=== PATIENT | female | born 1965 | race Caucasian/White ===

== ENCOUNTER → 2016-10-22 | Outpatient (CLI) | payer OTHER ==
--- NOTE | 2016-10-22 13:57 | US ---
EXAMINATION TYPE: US venous doppler duplex LE LT DATE OF EXAM: 10/22/2016 1:39 PM COMPARISON: NONE CLINICAL HISTORY: lLE R/O DVT, M25.571. post hip replacement SIDE PERFORMED: Left VESSELS IMAGED: External Iliac Vein (EIV) Common Femoral Vein Deep Femoral Vein Greater Saphenous Vein * Femoral Vein Popliteal Vein Proximal Calf Veins (* superficial vessels) TECHNOLOGIST IMPRESSION: wnl Left Leg: Negative for DVT There is no popliteal fossa lesion. Results called to Laura Yeung's office IMPRESSION: THIS EXAMINATION IS NEGATIVE FOR DVT WITHIN THE LEFT LEG.
== END | disposition home or self-care (01) ==
LOC: RADUSWWP 12:28
PROVIDERS: ATTEND Internal Medicine
DX: M79.662 Pain in left lower leg (principal); M79.89 Other specified soft tissue disorders

== ENCOUNTER → 2017-05-15 | Outpatient (CLI) | payer OTHER ==
--- NOTE | 2017-05-15 10:22 | CT ---
EXAMINATION TYPE: CT abdomen pelvis w con DATE OF EXAM: 05/15/2017 COMPARISON: NONE HISTORY: Change in bowel habits CT DLP: 876 mGycm Automated exposure control for dose reduction was used. TECHNIQUE: Helical acquisition of images from the lung bases through the pelvis have been completed. CONTRAST: Performed with Oral Contrast and with IV Contrast, patient injected with 100 mL of Omnipaque 300. FINDINGS: LUNG BASES: No significant abnormality is appreciated. AORTA: No significant abnormality is appreciated. LIVER/GB: Liver is enlarged and shows low attenuation possibly due to hepatic steatosis, gallbladder is normal. PANCREAS: No significant abnormality is seen. SPLEEN: No significant abnormality is seen. ADRENALS: No significant abnormality is seen. KIDNEYS: No significant abnormality is seen. REPRODUCTIVE ORGANS: Left ovary shows an associated cystic focus measuring approximately 17 18 mm, ut erus is absent. BOWEL: Difficult to exclude mucosal lesion on the basis of this exam. No evident bowel obstruction. The appendix is not visualized.. FREE AIR: No Free Air visible. ASCITES: None visible. PELVIC ADENOPATHY: None visualized. RETROPERITONEAL ADENOPATHY: No Retroperitoneal Adenopathy visible. URINARY BLADDER: No significant abnormality is seen. OSSEOUS STRUCTURES: Bilateral hip prostheses are in place. Streak artifact may limit sensitivity wit hin the pelvis. IMPRESSION: POSTOP CHANGES. INDETERMINATE CYSTIC LEFT OVARIAN LESION, CONSIDER FOLLOW-UP. HEPATOMEGALY, CONSIDER HEPATIC STEATOSIS.
== END | disposition home or self-care (01) ==
LOC: RADCTMAIN 06:31
PROVIDERS: ATTEND Internal Medicine
DX: R16.0 Hepatomegaly, not elsewhere classified (principal); R19.4 Change in bowel habit; Z88.2 Allergy status to sulfonamides
CPT/HCPCS: 74177; Q9967

== ENCOUNTER → 2017-06-13 | Outpatient (CLI) | payer OTHER ==
[2017-06-13 09:47] LABS: Basophils % (A) 1 %; CH 33.1; CHCM 33.4; Eosinophils # (A) 0.1 k/uL (0-0.7); Eosinophils % (A) 2 %; HCT 43.2 % (34.0-46.0); HDW 2.36; HGB 13.7 gm/dL (11.4-16.0); Luc # (Auto) 0.09; Luc % (Auto) 2; Lymphocytes # (A) 1.9 k/uL (1.0-4.8); Lymphocytes % (A) 31 %; MCH 31.6 pg (25.0-35.0); MCHC 31.7 g/dL (31.0-37.0); MCV 99.6 fL (80.0-100.0); Macrocytosis Slight; Mean Platelet Volume 7.2; Monocytes # (A) 0.4 k/uL (0-1.0); Monocytes % (A) 7 %; Neutrophils # (A) 3.6 k/uL (1.3-7.7); Neutrophils % (A) 58 %; RBC 4.34 m/uL (3.80-5.40); RDW 15.3 % (11.5-15.5); WBC 6.2 k/uL (3.8-10.6)
[2017-06-13 10:05] LABS: ALT 36 U/L (9-52); AST 27 U/L (14-36); Alkaline Phosphatase 100 U/L (38-126); Anion Gap 9 mmol/L; Blood Urea Nitrogen 8 mg/dL (7-17); Calcium 9.4 mg/dL (8.4-10.2); Carbon Dioxide 28 mmol/L (22-30); Chloride 103 mmol/L (98-107); Glucose 80 mg/dL (74-99); Non-African American GFR(MDRD) >60 (>60 ml/min/1.73 sqM); Potassium 4.2 mmol/L (3.5-5.1); Sodium 140 mmol/L (137-145); Total Bilirubin 0.3 mg/dL (0.2-1.3); Total Protein 7.3 g/dL (6.3-8.2)
[2017-06-13 17:21] LABS: Gliadin AB IgA, Deaminated NEGATIVE (NEGATIVE); Gliadin AB IgG, Deaminated NEGATIVE (NEGATIVE); Gliadin AB IgG, Unit <0.4 U/mL; Tis Transglutaminase IgA Unit <0.5 AI; Tis Transglutaminase IgG Unit <0.8 U/mL
== END | disposition home or self-care (01) ==
LOC: LABWHC1 09:07
PROVIDERS: ATTEND Physician Assistant
DX: R14.0 Abdominal distension (gaseous) (principal); R16.0 Hepatomegaly, not elsewhere classified
CPT/HCPCS: 36415; 80053; 80074; 83516; 84443; 85025

== ENCOUNTER → 2017-10-03 | Outpatient (CLI) | payer OTHER ==
[~2017-10-03] MED LIST: AMINOPHYLLINE 500 MG/20 ML VIAL IV ONE; REGADENOSON 0.4 MG/5 ML SYRINGE IV ONE
--- NOTE | 2017-10-03 15:51 | EST ---
EXERCISE STRESS DATE OF SERVICE: 10/03/2017 AGE: 52 SEX: Female. HT: 69" WT: 176 pounds. PROTOCOL: Lexiscan Cardiolite. STAGE: DURATION OF EXERCISE: HEART RATE REST: 73 BLOOD PRESSURE REST: 112/71 MAXIMUM HEART RATE ACHIEVED: 102 MAXIMUM BLOOD PRESSURE: 121/65 85% MPHR: 143 100% MPHR: 160 METS: INDICATIONS: Chest pain, shortness of breath. CLINICAL INFORMATION: STRESS DATA: Pre-testing physical examination showed heart rate of 73, pressure 112/71 mmHg. Baseline EKG showed sinus mechanism. Lexiscan in the amount of 0.4 mg was given to the patient over 15 seconds per protocol. Maximum heart rate was 102 beats per minute and maximum pressure was 121/65 mmHg. The patient did not have any symptoms and the EKG did not show any significant ST or T-wave abnormalities consistent with ischemia. CONCLUSION: 1. Non-diagnostic electrocardiogram stress testing in response to Lexiscan. 2. Please follow up on the Cardiolite portion on a separate report from the radiology department. MMODL / IJN: [id number] /
--- NOTE | 2017-10-04 14:51 | NM ---
EXAMINATION TYPE: NM stress lexiscan cardiolite DATE OF EXAM: 10/03/2017 COMPARISON: NONE HISTORY: Primary pulmonary hypertension, angina pectoris, I 27.0, I 20.9 TECHNIQUE: After the intravenous administration of 11.1 mCi Tc 99m Sestamibi - Cardiolite resting SP ECT images acquired 40 minutes post injection. The patient received 0.4mg Lexiscan, 26.5 mCi Tc 99m Sestamibi - Stress images obtained [address] injection FINDINGS: Gut activity may obscure detail along the inferior wall the left ventricle. Review of stress and rest SPECT images demonstrates decreased radio pharmaceutical uptake along anter ior wall left ventricle on stress and rest images. Along the lateral wall the left ventricle towards the base of the heart there is decreased radiotracer uptake on stress as compared to rest images. Gat ed analysis shows normal wall motion with an estimated left ventricular ejection fraction of 52 %. Images submitted 10/04/2017 IMPRESSION: Pharmacologically induced left ventricular myocardial wall ischemia. Findings suggest prior infarct. A Yellow message has been communicated to Charlotte Yeung MD via the [employer] system on 10/04/2017 2:48 PM, Message ID [id number].
== END | disposition home or self-care (01) ==
LOC: RADNMMAIN 08:22
PROVIDERS: ATTEND Internal Medicine
DX: I25.9 Chronic ischemic heart disease, unspecified (principal); I10 Essential (primary) hypertension
CPT/HCPCS: 93017; 78452; A9500; J2785

== ENCOUNTER 2017-10-17 18:19 | Inpatient (IN) | payer OTHER ==
[2017-10-17] MEDS ORDERED: MORPHINE SULFATE 4 MG/ML SYRINGE IVP STA (19:00)
[2017-10-17] MEDS ORDERED: ASPIRIN 81 MG PO STA (19:00)
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
[2017-10-17 19:16] LABS: Basophils % (A) 0 %; Eosinophils # (A) 0.1 k/uL (0-0.7); Eosinophils % (A) 1 %; HCT 40.9 % (34.0-46.0); Lymphocytes # (A) 3.1 k/uL (1.0-4.8); Lymphocytes % (A) 28 %; MCH 33.3 pg (25.0-35.0); MCHC 34.2 g/dL (31.0-37.0); MCV 97.5 fL (80.0-100.0); Mean Platelet Volume 6.7; Monocytes # (A) 0.7 k/uL (0-1.0); Monocytes % (A) 7 %; Neutrophils % (A) 63 %; Platelet Count 248 k/uL (150-450); RBC 4.19 m/uL (3.80-5.40); RDW 12.9 % (11.5-15.5); WBC 11.1 k/uL (3.8-10.6)
[2017-10-17 19:23] LABS: ALT 30 U/L (9-52); AST 16 U/L (14-36); Albumin 4.3 g/dL (3.5-5.0); Alkaline Phosphatase 83 U/L (38-126); Anion Gap 11 mmol/L; Blood Urea Nitrogen 7 mg/dL (7-17); Calcium 9.7 mg/dL (8.4-10.2); Carbon Dioxide 28 mmol/L (22-30); Chloride 100 mmol/L (98-107); Glucose 92 mg/dL (74-99); Lipase 265 U/L (23-300); Magnesium 1.8 mg/dL (1.6-2.3); Potassium 3.5 mmol/L (3.5-5.1); Sodium 139 mmol/L (137-145); Total Bilirubin 0.2 mg/dL (0.2-1.3); Total Protein 7.4 g/dL (6.3-8.2)
--- NOTE | 2017-10-17 19:32 | XR ---
EXAMINATION TYPE: XR chest 2V DATE OF EXAM: 10/17/2017 COMPARISON: NONE HISTORY: Chest pain and pressure. Difficulty in breathing. TECHNIQUE: Frontal and lateral views of the chest are obtained. FINDINGS: There is chronic parenchymal change without suspicious focal air space opacity, pleural ef fusion, or pneumothorax seen. The cardiac silhouette size is upper limits of normal with ectasia at level of aortic knob. The osseous structures are intact. IMPRESSION: No suspicious acute pulmonary process.
[2017-10-17 19:37] LABS: Creatine Kinase 52 U/L (30-135)
[2017-10-17 19:44] LABS: INR 1.1 (<1.2); Partial Thromboplastin Time 23.5 sec (22.0-30.0); Prothrombin Time 10.3 sec (9.0-12.0)
[2017-10-17 19:50] LABS: Creatine Kinase MB 1.2 ng/mL (0.0-2.4); Troponin I <0.012 ng/mL (0.000-0.034)
[2017-10-17] MEDS ORDERED: HEPARIN SODIUM,PORCINE 5,000 UNIT/ML 1 ML VIAL IV ONE (20:20)
[2017-10-17] MEDS ORDERED: HEPARIN SODIUM,PORCINE 5,000 UNIT/ML 1 ML VIAL IV PRN (20:20)
[2017-10-17] MEDS ORDERED: HEPARIN SOD,PORK IN 0.45% NACL 25,000 UNIT in 0.45% NACL 1 500ML.BAG IV SCH (20:30)
[2017-10-17] MEDS ORDERED: ONDANSETRON 4 MG/2 ML VIAL IVP PRN (21:01)
[2017-10-17] MEDS ORDERED: IBUPROFEN 400 MG TAB PO PRN (21:01)
[2017-10-17] MEDS ORDERED: ACETAMINOPHEN TAB 325 MG TAB PO PRN (21:01)
[2017-10-17] MEDS ORDERED: NALOXONE 0.4 MG/ML 1 ML VIAL IV PRN (21:01)
[2017-10-17] MEDS ORDERED: MORPHINE SULFATE 4 MG/ML SYRINGE IV PRN (21:01)
[2017-10-17] MEDS ORDERED: ASPIRIN 325 MG TAB PO STA (21:05)
[2017-10-17 21:49] VITALS: BMI 26.1
[2017-10-17] MEDS ORDERED: NICOTINE 14MG/24HR PATCH TRANSDERM SCH (22:15)
[2017-10-17] MEDS ORDERED: ACETAMINOPHN PO PRN (22:16)
[2017-10-17] MEDS ORDERED: CYCLOBENZAPRINE 10 MG TAB PO PRN (22:16)
[2017-10-17] MEDS ORDERED: ALBUTEROL NEBULIZED 2.5 MG/3 ML INHALATION PRN (22:16)
[2017-10-17] MEDS ORDERED: GUAIFEN PO PRN (22:16)
[2017-10-17] MEDS ORDERED: PHENYLEPH PO PRN (22:16)
[2017-10-17] MEDS ORDERED: [UNRECOGNIZED DRUG - OTHER] PO PRN (22:16)
[2017-10-17] MEDS ORDERED: ATORVASTATIN 10 MG TAB PO SCH (22:30)
[2017-10-17] MEDS: SODIUM CHLORIDE 0.9% 1,000 ML IV SCH (23:20)
[2017-10-17] MEDS: FAMOTIDINE 20 MG TAB PO SCH (23:21)
[2017-10-17] MEDS: ALPRAZolam 0.5 MG TAB PO SCH (23:21)
[2017-10-18 02:37] LABS: Creatine Kinase 44 U/L (30-135)
[2017-10-18 02:50] LABS: Troponin I <0.012 ng/mL (0.000-0.034)
--- NOTE | 2017-10-18 04:56 | HP ---
HISTORY AND PHYSICAL DATE OF ADMISSION: 10/17/17 CHIEF COMPLAINT: Chest pain. HISTORY OF PRESENT ILLNESS: This is a 52-year-old woman with a past medical history of COPD, GERD, hyperlipidemia, history of DJD, history of irritable bowel syndrome being followed by Dr. Yeung in the outpatient setting was under tremendous stress recently according to her. She had a problem with her son who has got issues with substance abuse and who is in [place] now. The patient was having severe chest pain which is felt in the anterior part of the [place] airport [place] recent visit to [place] according to her. Currently the patient had a stress test done as an outpatient that showed evidence of old myocardial infarction, some reversible ischemia. Cardiology consultation has been arranged today as an outpatient, but today the patient had constricting type of pressure type of pain in the anterior part of the chest without any radiation, but associated with some nausea, vomiting and some generalized weakness. The patient came to [facility] and admitted for further evaluation and treatment. There is no history of fever, rigors. No history of headache, loss of consciousness, seizures. PAST MEDICAL HISTORY: COPD, GERD, hyperlipidemia, DJD, bladder surgery, breast surgery. MEDICATIONS: Prior to admission include home medications: 1. Zantac 300 mg p.o. q.h.s. 2. Prilosec 20 mg p.o. b.i.d. 3. [place] 10 daily q.i.d. p.r.n. 4. Guaifenesin that is Mucinex 20 mg t.i.d. p.r.n. 5. Flexeril 10 mg t.i.d. p.r.n. 6. Lipitor 10 mg p.o. q.h.s. 7. Ventolin 1-2 puffs q.6h p.r.n. 8. Xanax 2 mg p.o. q.h.s. ALLERGIES: BACTRIM. FAMILY HISTORY: History of CAD in mothers side. SOCIAL HISTORY: History of smoking. Occasional alcohol intake. REVIEW OF SYSTEMS: ENT: No diminished vision. No diminished hearing. Cardio system: As mentioned earlier. RESPIRATORY: As mentioned earlier. GI no nausea or vomiting. no dysuria. Nervous system: No numbness, weakness. Allergy/Immunology: No asthma or hayfever. Musculoskeletal: As mentioned earlier. Endocrine: No history of diabetes or hypothyroidism. Constitutional: As mentioned earlier. HEMATOLOGY/ONCOLOGY: No history of anemia. Dermatology negative. Rheumatology negative. Psychiatry as mentioned earlier. PHYSICAL EXAMINATION: The patient is alert and oriented times three. Pulse 67, blood pressure 130/87, respiration 18, temperature 97.9, pulse ox 98% on 2 L. HEENT conjunctivae normal. Oral mucosa moist. Neck is no jugular venous distention. No carotid bruit. No lymph node enlargement. Cardiovascular S1, S2. Respirations: Breath sounds diminished in the bases. No rhonchi. No crackles. ABDOMEN: Soft, nontender. No mass palpable. Legs no edema and no swelling. NERVOUS SYSTEM: Higher functions as mentioned earlier, moves all 4 limbs, no focal motor or sensory deficits. Lymphatics: No lymph nodes palpable in the neck, axillae or groin. SKIN: No ulcer, rash or bleeding. LABS: WBC 11.1. Other labs are negative. Troponins negative. ASSESSMENT: 1. Chest pain possible unstable angina. 2. Recent positive stress test. 3. Multiple social stressors. 4. Chronic obstructive pulmonary disease. 5. History of nicotine dependence. 6. Gastroesophageal reflux disease. 7. Hyperlipidemia. 8. History of degenerative joint disease. 9. History of irritable bowel syndrome. 10.History of bladder suspension. 11.Breast surgery. 12.History of anxiety, depression. RECOMMENDATIONS AND DISCUSSION: In this 52-year-old woman with a past medical history of multiple medical problems, we will monitor the patient closely. Continue the current medications, continue symptomatic treatment. Angina protocol. Continue with IV heparin. Antiplatelet agents. Repeat labs. Otherwise resume the home medications. Cardiology consultation for possible cardiac cath. Guarded prognosis because of the multiple complex medical issues. Further recommendations to follow. MMODL / IJN: [id number] /
[2017-10-18] MEDS: PANTOPRAZOLE 40 MG TABLET PO SCH (06:32)
[2017-10-18 07:14] LABS: Basophils % (A) 0 %; Eosinophils # (A) 0.2 k/uL (0-0.7); Eosinophils % (A) 2 %; HCT 40.7 % (34.0-46.0); HGB 13.3 gm/dL (11.4-16.0); Lymphocytes # (A) 3.7 k/uL (1.0-4.8); Lymphocytes % (A) 40 %; MCH 33.1 pg (25.0-35.0); MCHC 32.6 g/dL (31.0-37.0); MCV 101.4 fL (80.0-100.0); Mean Platelet Volume 6.9; Monocytes # (A) 0.6 k/uL (0-1.0); Monocytes % (A) 6 %; Neutrophils # (A) 4.6 k/uL (1.3-7.7); Neutrophils % (A) 50 %; Platelet Count 224 k/uL (150-450); RBC 4.01 m/uL (3.80-5.40); RDW 12.7 % (11.5-15.5); WBC 9.2 k/uL (3.8-10.6)
[2017-10-18 07:29] LABS: ALT 27 U/L (9-52); AST 15 U/L (14-36); Albumin 3.3 g/dL (3.5-5.0); Alkaline Phosphatase 74 U/L (38-126); Anion Gap 8 mmol/L; Blood Urea Nitrogen 9 mg/dL (7-17); Calcium 9.3 mg/dL (8.4-10.2); Carbon Dioxide 28 mmol/L (22-30); Chloride 108 mmol/L (98-107); Glucose 94 mg/dL (74-99); Potassium 3.5 mmol/L (3.5-5.1); Sodium 144 mmol/L (137-145); Total Bilirubin 0.2 mg/dL (0.2-1.3); Total Protein 6.1 g/dL (6.3-8.2)
[2017-10-18 07:34] LABS: Creatine Kinase 38 U/L (30-135)
[2017-10-18 07:47] LABS: Creatine Kinase MB 0.9 ng/mL (0.0-2.4); Troponin I <0.012 ng/mL (0.000-0.034)
[2017-10-18] MEDS: HYDROcodone/APAP 10-325MG 1 EACH TAB PO PRN ×2 (07:47→14:34)
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
[2017-10-18] MEDS ORDERED: NITROGLYCERIN SL TABS 0.4 MG TAB SUBLINGUAL PRN (11:47)
[2017-10-18] MEDS ORDERED: ATORVASTATIN 80 MG TAB PO STA (11:47)
[2017-10-18] MEDS ORDERED: ASPIRIN 325 MG TAB PO STA (11:47)
--- NOTE | 2017-10-18 12:34 | ECHOF ---
Referral Reason:chest pain, abnormal stress MEASUREMENTS -------- HEIGHT: 175.3 cm WEIGHT: 78.0 kg BP: 130/86 RVIDd: 2.7 cm (< 3.3) IVSd: 1.1 cm (0.6 - 1.1) LVIDd: 4.4 cm (3.9 - 5.3) LVPWd: 1.2 cm (0.6 - 1.1) IVSs: 1.4 cm LVIDs: 3.4 cm LVPWs: 1.6 cm LA Diam: 3.4 cm (2.7 - 3.8) LAESV Index (A-L): 27.40 ml/m Ao Diam: 3.1 cm (2.0 - 3.7) AV Cusp: 2.2 cm (1.5 - 2.6) MV EXCURSION: 18.829 mm (> 18.000) MV EF SLOPE: 98 mm/s (70 - 150) EPSS: 0.6 cm MV E Frederic: 0.88 m/s MV DecT: 225 ms MV A Frederic: 0.81 m/s MV E/A Ratio: 1.09 FINDINGS -------- Sinus rhythm. This was a technically good study. The left ventricular size is normal. There is borderline concentric left ventricular hypertrophy. Overall left ventricular systolic function is normal with, an EF between 55 - 60 %. The right ventricle is normal in size. Normal LA size by volume 22+/-6 ml/m2. The right atrium is normal in size. Aortic valve is trileaflet and is mildly thickened. The mitral valve is normal. There is trace to mild mitral regurgitation. The tricuspid valve appears structurally normal. There is no pulmonic regurgitation present. The aortic root size is normal. Normal inferior vena cava with normal inspiratory collapse consistent with estimated right atrial pre ssure of 5 mmHg. There is no pericardial effusion. CONCLUSIONS -------- 1. Sinus rhythm. 2. This was a technically good study. 3. The left ventricular size is normal. 4. There is borderline concentric left ventricular hypertrophy. 5. Overall left ventricular systolic function is normal with, an EF between 55 - 60 %. 6. Normal LA size by volume 22+/-6 ml/m2. 7. Aortic valve is trileaflet and is mildly thickened. 8. There is trace to mild mitral regurgitation. 9. The tricuspid valve appears structurally normal. 10. There is no pulmonic regurgitation present. 11. The aortic root size is normal. 12. Normal inferior vena cava with normal inspiratory collapse consistent with estimated right atrial pressure of 5 mmHg. 13. There is no pericardial effusion. TEACHER ASST: Carie Veras RDCS
[2017-10-18] MEDS ORDERED: IV FLUID CONTINUATION 1,000 ML IV ONE (12:57)
[2017-10-18] MEDS ORDERED: VERAPAMIL 2.5 MG/ML 2 ML AMP ONE (13:19)
[2017-10-18] MEDS: MIDAZOLAM 2 MG/2 ML VIAL IV ONE ×2 (13:20→13:24)
[2017-10-18] MEDS ORDERED: MIDAZOLAM 2 MG/2 ML VIAL ONE (13:20)
[2017-10-18] MEDS ORDERED: fentaNYL (PF) 50 MCG/ML 2 ML AMP IV ONE (13:21)
[2017-10-18] MEDS ORDERED: LIDOCAINE 2% INJ 20 MG/ML SQ ONE (13:22)
[2017-10-18] MEDS ORDERED: fentaNYL (PF) 50 MCG/ML 2 ML AMP ONE (13:23)
[2017-10-18] MEDS: VERAPAMIL SYRINGE (5 MG/10 ML) INTRAARTER ONE ×2 (13:26→13:42)
[2017-10-18] MEDS ORDERED: METOPROLOL TARTRATE 5 MG/5 ML VIAL IVP ONE ×2 (13:34→13:36)
[2017-10-18] MEDS ORDERED: IOHEXOL 350 MG/ML (PER ML) 100ML BTL INJ ONE (13:44)
[2017-10-18] MEDS ORDERED: RX INFO: IV CONTRAST WAS GIVEN 1 EACH MISC MISCELLANE PRN (13:49)
--- NOTE | 2017-10-18 14:00 | P.PCN ---
Date of Procedure: 10/18/17 Preoperative Diagnosis: HISTORY: This is a 52-year-old female who was admitted to the hospital with complaints of chest pain which was atypical. Patient recently had a stress test , which was suggestive of previous MO with ischemia. Patient has hyperlipidemia and smoking history and family history of ischemic heart disease. Patient is given the option of having a dobutamine echo versus cardiac cath for definitive diagnosis. Patient requested to have cardiac cath for definitive diagnosis. CONSENT:I have discussed the risks, benefits and alternative therapies for the above-mentioned procedure and for both sedation/analgesia as well as necessary blood product administration, if indicated, as they pertain to this patient. The patient has indicated understanding and acceptance of the risks and procedures discussed. PROCEDURE: Patient was brought to the lab in a fasting state. Patient was given some IV sedation. The right wrist is infiltrated with lidocaine and right femoral artery was entered using Seldinger technique. A 6-Luxembourger catheter was left in place and selective coronary arteriography was performed. Patient tolerated the procedure well except she developed an episode of ventricular fibrillation during the injection of the right coronary artery. Patient needed to defibrillator shock to establish sinus rhythm. Subsequently, patient went in to atrial fibrillation with moderately rapid ventricular response, TR band was applied for hemostasis at the end of the procedure. she is transferred to telemetry unit in stable condition and she'll be monitored continuously for the next 24 hours. She is put on Lopressor 25 mg by mouth twice a day along with aspirin. Conscious Sedation: Versed 2mg Fentanyl 50 g Duration 20minutes HEMODYNAMICS: Aortic pressure is about 130/80 SELECTIVE CORONARY ARTERIOGRAPHY: LEFT MAIN: Normal length and is free of any occlusive disease THE LEFT ANTERIOR DESCENDING CORONARY ARTERY: Good caliber vessel reaching the apex free of any occlusive disease THE LEFT CIRCUMFLEX AND IS CORONARY ARTERY: Good caliber vessel, free of occlusive disease THE RIGHT CORONARY ARTERY: Good caliber vessel giving rise good-sized PDA and PLV. Free of occlusive disease LEFT VENTRICULOGRAPHY: Not done FINAL IMPRESSION: #1. Normal coronary arteries. #2. An episode of ventricular fibrillation requiring defibrillator shock after injection of the right coronary artery. #3. Atrial fibrillation PLAN:. Continue to monitoring her. We'll continue with beta blockers and aspirin. If necessary, may consider cardioversion tomorrow if patient persists in atrial fibrillation PROGNOSIS: Fair
[2017-10-18] MEDS: SODIUM CHLORIDE 0.9% 1,000 ML IV SCH ×3 (14:09→23:41)
[2017-10-18] MEDS: ALPRAZolam 0.25 MG TAB PO PRN (14:34)
--- NOTE | 2017-10-18 18:01 | PN ---
PROGRESS NOTE DATE OF SERVICE: 10/18/2017 This 52-year-old woman who was admitted with chest pain had a cardiac catheterization by Cardiology. The patient recently had positive stress test and cardiac cath showed normal coronary arteries with an episode of ventricular fibrillation requiring defibrillation shock after injection of the right coronary was noted and patient also had atrial fibrillation, which was converted to normal sinus rhythm later. No chest pain. No palpitations. No fever at this time. PHYSICAL EXAM: Alert and oriented x3. Pulse 80, blood pressure 119/87, respirations 16, temperature 97.9, pulse ox 98% room air. HEENT: Conjunctivae normal. Oral mucosa moist. NECK: No jugular venous distention. No carotid bruit. No lymph node enlargement. CARDIOVASCULAR: S1, S2. No S3, no S4. RESPIRATORY: Breath sounds diminished in the bases. No rhonchi, no crackles. ABDOMEN: Soft, nontender. No mass palpable. LEGS: No edema, no swelling. NERVOUS SYSTEM: Higher functions as mentioned earlier. Moves all four limbs. No focal motor deficits. LYMPHATIC: No lymphadenopathy in the neck, axillae, groin. SKIN: No ulcer, rash or bleeding. LABS: WBC 9.2, hemoglobin 13.2, sodium 144, potassium 3.5. ASSESSMENT: 1. Chest pain with normal coronary arteries, possibly musculoskeletal. 2. Episode of ventricular fibrillation and atrial fibrillation during the cardiac cath. 3. History of recent positive stress test. 4. Multiple social stressors. 5. Chronic obstructive pulmonary disease. 6. History of nicotine dependence. 7. Gastroesophageal reflux disease. 8. Hyperlipidemia. 9. History degenerative joint disease. 10.History of irritable bowel syndrome. 11.History of bladder suspension. 12.History of breast surgery. 13.History of anxiety and depression. RECOMMENDATION AND DISCUSSION: I recommend to continue current medications. Continue to monitor. Symptomatic treatment. Otherwise at this time I recommend to continue symptomatic treatment. Continue with beta blockers. A 2D echo showed ejection fraction 50-60%. Closely monitor with Cardiology with antiplatelet agents. Recheck magnesium. Monitor closely. Further recommendations to follow. MMODL / IJN: [id number] /
[2017-10-18] MEDS: METOPROLOL TARTRATE 25 MG TAB PO SCH (20:18)
[2017-10-18] MEDS: FAMOTIDINE 20 MG TAB PO SCH (20:18)
[2017-10-18] MEDS: ALPRAZolam 0.5 MG TAB PO SCH (20:29)
[2017-10-18] MEDS ORDERED: NICOTINE 14MG/24HR PATCH TRANSDERM SCH (21:00)
[2017-10-19] MEDS: HYDROcodone/APAP 10-325MG 1 EACH TAB PO PRN ×2 (06:24→11:53)
[2017-10-19] MEDS: PANTOPRAZOLE 40 MG TABLET PO SCH (06:27)
[2017-10-19] MEDS: SODIUM CHLORIDE 0.9% 1,000 ML IV SCH ×2 (06:28→14:21)
[2017-10-19 07:01] LABS: Basophils # (A) 0.1 k/uL (0-0.2); Basophils % (A) 1 %; Eosinophils # (A) 0.1 k/uL (0-0.7); Eosinophils % (A) 1 %; HCT 41.7 % (34.0-46.0); HGB 13.8 gm/dL (11.4-16.0); Lymphocytes # (A) 2.4 k/uL (1.0-4.8); Lymphocytes % (A) 27 %; MCH 32.7 pg (25.0-35.0); Mean Platelet Volume 6.7; Monocytes # (A) 0.6 k/uL (0-1.0); Monocytes % (A) 7 %; Neutrophils # (A) 5.5 k/uL (1.3-7.7); Neutrophils % (A) 63 %; Platelet Count 231 k/uL (150-450); RBC 4.21 m/uL (3.80-5.40); RDW 12.9 % (11.5-15.5); WBC 8.7 k/uL (3.8-10.6)
[2017-10-19 07:16] LABS: Anion Gap 8 mmol/L; Blood Urea Nitrogen 9 mg/dL (7-17); Calcium 9.5 mg/dL (8.4-10.2); Carbon Dioxide 30 mmol/L (22-30); Chloride 106 mmol/L (98-107); Glucose 90 mg/dL (74-99); Sodium 144 mmol/L (137-145)
[2017-10-19 08:00] VITALS: TEMP 98.2
[2017-10-19] MEDS: METOPROLOL TARTRATE 25 MG TAB PO SCH (08:01)
[2017-10-19] MEDS: ALPRAZolam 0.25 MG TAB PO PRN (13:58)
--- NOTE | 2017-10-19 14:24 | P.PN ---
Subjective Progress Note Date: 10/19/17 This is a pleasant 52-year-old female with history of hypercholesterolemia and smoking. Was scheduled for a stress test by her primary care physician due to ongoing chest discomfort. This is reported as showing a fixed defect in the anterior wall suggestive of previous myocardial infarction and reversible ischemia involving the lateral wall. Patient was subsequently admitted to the hospital with complaints of chest tightness and subsequently underwent cardiac catheterization yesterday by Dr. Bray. Cardiac catheterization showed normal coronary arteries. Patient did have an episode of ventricular fibrillation requiring defibrillator shock after injection of the right coronary artery with no recurrence. She did have some postprocedural atrial fibrillation for which converted to sinus rhythm yesterday afternoon. His been started on aspirin and beta ronaldo. On examination this morning, patient is resting comfortably in bed. She denies complaints of chest discomfort, shortness of breath, palpitations, dizziness or syncope. Objective - Vital Signs Vital signs: Vital Signs Temp 98.2 F 10/19/17 11:29 Pulse 63 10/19/17 11:29 Resp 17 10/19/17 11:29 BP 109/68 10/19/17 11:29 Pulse Ox 98 10/19/17 11:29 Intake & Output 10/18/17 10/19/17 10/19/17 18:59 06:59 18:59 Intake Total 1034 615 Output Total 800 400 Balance 234 215 Weight 78.3 kg Intake: IV 200 Intake, IV Titration 570 375 Amount Heparin Sod,Pork in 0.45% 120 NaCl 25,000 unit In 0.45 % NaCl 1 500ml.bag @ 12 UNITS/KG/HR 19.26 mls/hr IV .Q24H SHAHIDA Rx#: [id number] Sodium Chloride 0.9% 1, 450 000 ml @ 75 mls/hr IV . [id number] SHAHIDA Rx#:[id number] Sodium Chloride 0.9% 1, 375 000 ml @ 75 mls/hr IV . [id number] SHAHIDA Rx#:[id number] Oral 264 240 Output: Urine 800 400 Other: Voiding Method Toilet # Voids 1 2 1 - Exam PHYSICAL EXAMINATION: HEENT: Head is atraumatic, normocephalic. Pupils equal, round. Neck is supple. There is no elevated jugular venous pressure. HEART EXAMINATION: Heart sounds regular, S1 and S2 normal. No murmur or gallop heard. CHEST EXAMINATION: Lungs are clear to auscultation and precussion. No chest wall tenderness is noted on palpation or with deep breathing. ABDOMEN: Soft, nontender. Bowel sounds are heard. No organomegaly noted. EXTREMITIES: 2+ peripheral pulses with no evidence of peripheral edema and no calf tenderness noted. Right radial puncture site is soft without hematoma or ecchymosis, strong radial pulse.. NEUROLOGIC patient is awake, alert and oriented x3. . - Labs CBC & Chem 7: 10/19/17 06:00 10/19/17 06:00 Assessment and Plan Assessment: #1 chest pain with false positive stress test, cardiac catheterization showed normal coronary arteries #2 ventricular fibrillation induced during cardiac catheterization requiring defibrillator shock, no recurrence #3 postprocedural atrial fibrillation, paroxysmal, lone episode, self converted to sinus rhythm #4 smoking #5 hyperlipidemia Plan: From cardiology's perspective, patient is stable for discharge home. She'll follow-up in the office with Dr. Bray. She was advised to quit smoking and will be discharged home on Chantix. 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 Patient was seen and examined.
[2017-10-19 15:21] VITALS: BP 138/87; PULSE 65; RESP 18
[2017-10-19 16:07] LABS: Cholesterol 146 mg/dL (<200); HDL Cholesterol 39 mg/dL (40-60); LDL Cholesterol,Calculated 83 mg/dL (0-99); Triglycerides 121 mg/dL (<150)
--- NOTE | 2017-10-19 19:26 | DS ---
DISCHARGE SUMMARY DATE OF SERVICE: 10/19/2017 FINAL DIAGNOSES: 1. Chest pain with normal coronary artery disease, possibly musculoskeletal. 2. Episode of ventricular fibrillation and atrial fibrillation paroxysmal during the cardiac cath. 3. History of recent positive stress test. 4. Multiple social stressors. 5. Chronic obstructive pulmonary disease. 6. History of gastroesophageal reflux disease. 7. Hyperlipidemia. 8. History of degenerative joint disease. 9. History of irritable bowel syndrome. DISCHARGE DISPOSITION: Patient will be discharged in stable condition with guarded prognosis. HISTORY OF PRESENT ILLNESS: This 52-year-old woman with a past medical history of multiple medical problems was admitted with chest pain. Myocardial infarction ruled out. Cardiac catheterization, , but post procedure the patient developed ventricular fibrillation and had to be shocked and also atrial fibrillation which is paroxysmal in nature. Treated symptomatically. Cardiology saw the patient. The patient discharged in stable condition with guarded prognosis. Vitals are stable. Cardiovascular: S1, S2. Abdomen: Soft. Nervous System: No focal deficits. DISCHARGE ADVICE: 1. Diet is cardiac. 2. Activities limited until followup. 3. Follow up with Dr. Yeung in 2-3 days. 4. Follow with Dr. Bray in 1 week. MEDICATIONS: 1. Ventolin HFA 1-2 puffs q.6h p.r.n. 2. Xanax 0.25 t.i.d. and as well as 2 mg q.h.s. to be adjusted in the outpatient setting. 3. Lipitor 10 mg q.h.s. 4. Flexeril 10 mg t.i.d. p.r.n. 5. Guaifenesin 20 mL p.o. t.i.d. p.r.n. 6. Hydrocodone 10 mg q.i.d. p.r.n. 7. Lopressor 25 mg p.o. b.i.d. 8. Prilosec 20 mg p.o. b.i.d. 9. Zantac 300 mg q.h.s. 10.Chantix as directed 0.5 mg t.i.d. daily for 3 days, b.i.d. for another 4 days and then 1 mg. Once again, the patient will be discharged in stable condition with guarded prognosis. MMODL / IJN: [id number] / MTDD
== END 2017-10-19 17:37 | disposition home or self-care (01) | DRG 286 ==
LOC: EC 18:19 → 6SEL 21:01 → OBSVTOIN 10-18 15:44
PROVIDERS: ADMIT Hospitalist; ATTEND Hospitalist
PROC: B2111ZZ Fluoroscopy of Multiple Coronary Arteries using Low Osmolar Contrast (ICD-10-PCS; 2017-10-18)
PROC: 4A023N7 Measurement of Cardiac Sampling and Pressure, Left Heart, Percutaneous Approach (ICD-10-PCS; principal; 2017-10-18 12:57)
DX: R07.89 Other chest pain (principal); I49.01 Ventricular fibrillation; I48.0 Paroxysmal atrial fibrillation; I25.2 Old myocardial infarction; E78.00 Pure hypercholesterolemia, unspecified; E78.5 Hyperlipidemia, unspecified; F17.200 Nicotine dependence, unspecified, uncomplicated; J44.9 Chronic obstructive pulmonary disease, unspecified; K21.9 Gastro-esophageal reflux disease without esophagitis; K58.9 Irritable bowel syndrome, unspecified; F32.9 Major depressive disorder, single episode, unspecified; F41.9 Anxiety disorder, unspecified; M19.90 Unspecified osteoarthritis, unspecified site; Z79.899 Other long term (current) drug therapy; Z88.1 Allergy status to other antibiotic agents; Z88.2 Allergy status to sulfonamides; Z90.710 Acquired absence of both cervix and uterus; Z96.643 Presence of artificial hip joint, bilateral; Z71.6 Tobacco abuse counseling; Z82.49 Family history of ischemic heart disease and other diseases of the circulatory system
CPT/HCPCS: 36415; 71046; 80048; 80053; 80061; 82550; 82553; 83690; 83735; 83880; 84484; 85025; 85379; 85610; 85730; 93005; 93306; 93454; 94640; 94760; 96365; 96375; 96376; 99291

== ENCOUNTER → 2018-05-06 | Outpatient (CLI) | payer OTHER ==
--- NOTE | 2018-05-06 12:37 | XR ---
EXAMINATION TYPE: XR chest 2V DATE OF EXAM: 05/06/2018 COMPARISON: Prior chest x-ray 10/17/2017 HISTORY: Weight loss, fatigue and thyroiditis TECHNIQUE: Frontal and lateral views of the chest are obtained. FINDINGS: There is no focal air space opacity, pleural effusion, or pneumothorax seen. The cardiac silhouette size is within normal limits. The osseous structures are intact. Breast prostheses are p resent. Breast prostheses are present. There is a spinal curvature. IMPRESSION: No acute cardiopulmonary process.
--- NOTE | 2018-05-06 14:03 | US ---
EXAMINATION TYPE: US pelvic complete DATE OF EXAM: 05/06/2018 COMPARISON: Correlation CT 05/15/2017 CLINICAL HISTORY: 53-year-old female R63.4 Weight loss R53.82 Fatigue E06.9 Thyroiditis. TECHNIQUE: Transabdominal sonographic images of the pelvis were acquired. Date of LMP: Uterus surgically absent FINDINGS: Uterus surgically absent. Right Ovary: 1.6 x 1.3 x 1.4 cm Left Ovary: Not seen due to bowel gas. No evident adnexal abnormality or cul-de-sac free fluid. IMPRESSION: Status post hysterectomy. Normal appearance to the right ovary. Left ovary could not be visualized. N o pelvic free fluid.
--- NOTE | 2018-05-06 14:16 | US ---
EXAMINATION TYPE: US abdomen complete DATE OF EXAM: 05/06/2018 COMPARISON: Correlation CT 05/15/2017 CLINICAL HISTORY: 53-year-old female R63.4 Weight loss R53.82 Fatigue E06.9 Thyroiditis. TECHNIQUE: Multiple sonographic images of the abdomen are obtained. FINDINGS: EXAM MEASUREMENTS: Liver Length: 17.0 cm Gallbladder Wall: 0.1 cm CBD: 0.2 cm Spleen: 9.8 cm Right Kidney: 11.2 x 5.2 x 3.8 cm Left Kidney: 11.7 x 5.2 x 4.9 cm Pancreas: Suboptimal visualization of the pancreatic tail secondary to shadowing from bowel gas. Rem aining portions appear within normal limits. Liver: Upper limits of normal in size with normal homogeneous echotexture. No focal lesion. Gallbladder: No abnormal gallbladder distention, wall thickening, pericholecystic fluid, or shadowing calculi. There are 2 round mural based foci along the posterior gallbladder wall measuring 6 mm and 5 mm, possible polyps. Evidence for sonographic Weeks's sign: No CBD: wnl Spleen: wnl Right Kidney: wnl Left Kidney: wnl Upper IVC: wnl Abd Aorta: wnl IMPRESSION: 2 echogenic mural based foci along the posterior gallbladder wall measuring 6 cm in 5 mm could repres ent small gallbladder wall polyps. Six-month follow-up ultrasound recommended. Otherwise, no specific abnormality seen.
--- NOTE | 2018-05-06 14:19 | US ---
EXAMINATION TYPE: US thyroid st tissue head/neck DATE OF EXAM: 05/06/2018 COMPARISON: NONE CLINICAL HISTORY: A 53-year-old female R63.4 Weight loss R53.82 Fatigue E06.9 Thyroiditis. TECHNIQUE: Multiple sonographic images of the thyroid gland are obtained. FINDINGS: GLAND SIZE: Right Lobe: 5.1 x 1.8 x 1.6 cm Overall Parenchyma: heterogenous Left Lobe: 4.3 x 1.6 x 1.4 cm Overall Parenchyma: heterogeneous Isthmus Thickness: 0.4 cm There is heterogeneous parenchyma with some ill-defined hypoechoic areas but no discrete nodule . The re is hyperemia noted on both sides. IMPRESSION: Borderline thyromegaly with heterogeneous parenchyma and mild diffuse hyperemia. Correlate for possib le diffuse thyroiditis.
== END | disposition home or self-care (01) ==
LOC: RADUSWWP 09:29
PROVIDERS: ATTEND Internal Medicine
DX: E01.0 Iodine-deficiency related diffuse (endemic) goiter (principal); R63.4 Abnormal weight loss; Z90.710 Acquired absence of both cervix and uterus; F17.200 Nicotine dependence, unspecified, uncomplicated; R53.82 Chronic fatigue, unspecified; E06.9 Thyroiditis, unspecified
CPT/HCPCS: 71046; 76536; 76700; 76856

== ENCOUNTER → 2018-06-18 | Outpatient (CLI) | payer OTHER ==
--- NOTE | 2018-06-18 08:32 | MM ---
Reason for exam: clinical finding. Last mammogram was performed 5 years and 4 months ago. History: Silicone gel implants in both breasts, 2000. Took hormonal contraceptives for 10 years beginning at age 20. Indicated problem(s): lump or thickening in the right breast. Physical Findings: Nurse did not find any significant physical abnormalities on exam. MG Diag Mamm Implants JILLIAN w CAD Bilateral CC, MLO, and ID view(s) were taken. Prior study comparison: February 24, 2013, CAD bilateral diagnostic mammogram. June 30, 2009, bilateral diagnostic digital mammog. The breast tissue is heterogeneously dense. This may lower the sensitivity of mammography. Lateral left asymmetry, stable. Prepectoral silicone implants both display medial bulging contour abnormalities. No discrete extracapsular rupture. These results were verbally communicated with the patient and result sheet given to the patient on 06/18/18. ASSESSMENT: Benign, BI-RAD 2 RECOMMENDATION: Breast MRI of both breasts. (implant protocolfur suspected intracapsular rupture) Routine screening mammogram of both breasts in 1 year.
== END | disposition home or self-care (01) ==
LOC: RADMAMWWP 06:46
PROVIDERS: ATTEND Internal Medicine
DX: R92.8 Other abnormal and inconclusive findings on diagnostic imaging of breast (principal); Z98.82 Breast implant status
CPT/HCPCS: 77066

== ENCOUNTER → 2018-07-04 | Outpatient (CLI) | payer OTHER ==
--- NOTE | 2018-07-04 16:43 | BMR ---
EXAMINATION TYPE: MR breast BILAT wo con DATE OF EXAM: 07/04/2018 COMPARISON: Mammogram dated 06/18/2018 HISTORY: Abnormal mammogram, rupture TECHNIQUE: Multiplanar multisequence imaging through the breasts. FINDINGS: Intracapsular rupture is confirmed within the right breast. Areas of mixed intermediate hig h and low signal are scattered within the right breast. No evident extracapsular rupture. No evident adenopathy. Left breast also shows intracapsular rupture to lesser extent, linear focus noted along the medial as pect of the implant, axial images 32 through 34 of the silicone suppression sequences. No adenopathy. IMPRESSION: Intracapsular rupture bilateral dual-lumen breast implants.
== END | disposition home or self-care (01) ==
LOC: RADMRIMAIN 13:33
PROVIDERS: ATTEND Internal Medicine
DX: R92.8 Other abnormal and inconclusive findings on diagnostic imaging of breast (principal); T85.43XD Leakage of breast prosthesis and implant, subsequent encounter
CPT/HCPCS: 77059

== ENCOUNTER → 2020-03-21 | Outpatient (CLI) | payer OTHER ==
[2020-03-21 10:44] LABS: Basophils # (A) 0.1 k/uL (0-0.2); Basophils % (A) 1 %; Eosinophils # (A) 0.1 k/uL (0-0.7); Eosinophils % (A) 1 %; HCT 44.8 % (34.0-46.0); HGB 14.5 gm/dL (11.4-16.0); Lymphocytes # (A) 2.6 k/uL (1.0-4.8); Lymphocytes % (A) 23 %; MCH 30.9 pg (25.0-35.0); MCHC 32.3 g/dL (31.0-37.0); MCV 95.4 fL (80.0-100.0); Mean Platelet Volume 7.6; Monocytes # (A) 0.6 k/uL (0-1.0); Monocytes % (A) 5 %; Neutrophils # (A) 7.9 k/uL (1.3-7.7); Neutrophils % (A) 69 %; Platelet Count 201 k/uL (150-450); RBC 4.69 m/uL (3.80-5.40); RDW 12.6 % (11.5-15.5); WBC 11.3 k/uL (3.8-10.6)
[2020-03-21 15:28] LABS: Albumin 4.4 g/dL (3.80-4.90); Albumin/Globulin Ratio 1.69 (1.60-3.17); Anion Gap 3.3 mmol/L (4.00-12.00); BUN/Creat Ratio 17.14 Ratio (12.00-20.00); Calcium 9.8 mg/dL (8.7-10.3); Carbon Dioxide 29.7 mmol/L (21.6-31.8); Globulin 2.6 g/dL (1.6-3.3); Non-African American GFR(CKD) 97.5 (60.0-200.0); Potassium 4.5 mmol/L (3.5-5.5); Total Bilirubin 0.4 mg/dL (0.2-1.2)
== END | disposition home or self-care (01) ==
LOC: LABWHC1 09:27
PROVIDERS: ATTEND Internal Medicine
DX: K13.79 Other lesions of oral mucosa (principal); F17.200 Nicotine dependence, unspecified, uncomplicated; Z20.828 Contact with and (suspected) exposure to other viral communicable diseases
CPT/HCPCS: 36415; 80053; 85025; 86769

== ENCOUNTER → 2020-04-11 | Outpatient (CLI) | payer OTHER ==
--- NOTE | 2020-04-12 08:41 | CT ---
EXAMINATION TYPE: CT soft tissue neck w con DATE OF EXAM: 04/11/2020 COMPARISON: None HISTORY: Lesions to throat and larynx. CT DLP: 322.6 mGycm CONTRAST: Patient injected with 100 mL of Isovue M300. TECHNIQUE: Axial images at 3 mm thick sections. Reconstructed images in the coronal plane and sagitt al plane are reviewed. FINDINGS: Limited CT sections are obtained the lung apices. The lung apices appear clear. CT neck: The torus tubarius and fossa of Rosenmuller are normal. Management Intern spaces are normal. Para nasal sinuses and mastoid air cells are clear. Parotid glands appear normal and symmetrical. Submandibular glands, are normal. Parapharyngeal spac es are normal. No suspicious adenopathy is evident. Some very subtle nodularity may be on the posterior right vallecula. Hypopharynx visualized during th e examination is somewhat limited. Patient's dentures are present during the exam. Tracheobronchial t ree visualized appears normal. The esophageal course appears unremarkable as visualized. Vocal cord level appear symmetrical. Thyroid as visualized is normal. Osseous structures are normal. IMPRESSIONS: 1. Small amount nodularity from the right posterior tongue into the vallecula may be present. Throat and larynx abnormalities are not otherwise identified.
== END | disposition home or self-care (01) ==
LOC: RADCTMAIN 17:17
PROVIDERS: ATTEND Otolaryngology Plastic Surgery within the Head & Neck
DX: K14.8 Other diseases of tongue (principal)
CPT/HCPCS: 70491; Q9967

== ENCOUNTER → 2020-04-15 | Outpatient (CLI) | payer OTHER ==
[2020-04-15 07:40] LABS: HCT 45.3 % (34.0-46.0); HGB 15.1 gm/dL (11.4-16.0); MCH 31.9 pg (25.0-35.0); MCHC 33.4 g/dL (31.0-37.0); MCV 95.6 fL (80.0-100.0); Mean Platelet Volume 7.4; Platelet Count 200 k/uL (150-450); RBC 4.74 m/uL (3.80-5.40); RDW 12.5 % (11.5-15.5); WBC 9.2 k/uL (3.8-10.6)
[2020-04-15 11:15] LABS: African American GFR (CKD) 83.4 (60.0-200.0); Albumin 4.5 g/dL (3.80-4.90); Albumin/Globulin Ratio 1.73 (1.60-3.17); BUN/Creat Ratio 12.22 Ratio (12.00-20.00); Globulin 2.6 g/dL (1.6-3.3); Potassium 4.3 mmol/L (3.5-5.5); Total Bilirubin 0.3 mg/dL (0.3-1.2); Total Protein 7.1 g/dL (6.2-8.2)
[2020-04-15 13:39] LABS: INR 0.94 (0.90-1.11); Partial Thromboplastin Time 28.5 sec (24.7-29.9); Prothrombin Time 10.1 sec (9.9-11.9)
--- NOTE | 2020-04-15 15:40 | XR ---
EXAMINATION TYPE: XR chest 2V DATE OF EXAM: 04/15/2020 CLINICAL HISTORY: Presurgical testing. Tobacco abuse. Dyspnea. TECHNIQUE: Frontal and lateral views of the chest are obtained. COMPARISON: Chest radiograph 05/06/2018 FINDINGS: The cardiomediastinal silhouette is within normal limits for size. Pulmonary vasculature i s normal. There is no focal air space opacity, pleural effusion, or pneumothorax seen. The osseous st ructures are intact. IMPRESSION: No acute cardiopulmonary process.
== END | disposition home or self-care (01) ==
LOC: LABWHC1 06:58
PROVIDERS: ATTEND Internal Medicine
DX: Z01.818 Encounter for other preprocedural examination (principal); R06.00 Dyspnea, unspecified; F17.200 Nicotine dependence, unspecified, uncomplicated
CPT/HCPCS: 36415; 71046; 80053; 85027; 85610; 85730; 93005

== ENCOUNTER → 2020-10-17 | Outpatient (CLI) | payer OTHER ==
--- NOTE | 2020-10-18 16:37 | MR ---
EXAMINATION TYPE: MR lumbar spine wo/w con DATE OF EXAM: 10/17/2020 COMPARISON: Prior MR lumbar spine 08/25/2015 HISTORY: Low back pain, radiculopathy, DDD TECHNIQUE: Multiplanar, multisequence images of the lumbar spine were acquired utilizing 7.5 mL intravenous Gada vist gadolinium contrast. L1-L2: Normal disc appearance without desiccation. No herniation, protrusion or disc bulging. No ca nal stenosis is present. Foramina are patent bilaterally. L2-L3: Normal disc appearance without desiccation. No herniation, protrusion or disc bulging. No ca nal stenosis is present. Foramina are patent bilaterally. L3-L4: Small posterior disc bulge causes slight anterior mass effect on the thecal sac similar to rita or. L4-L5: Posterior central disc herniation has progressed is present centrally causing anterior mass ef fect on the thecal sac. No significant foraminal encroachment. Peripheral enhancement is present at t he disc herniation consistent with some local granulation tissue. L5-S1: Small posterior disc bulge contacts anterior thecal sac. No significant foraminal encroachment . Lumbar segments are intact. No paraspinal masses are identified. Conus medullaris has a normal appe arance. Lumbar vertebral bodies show stable height, alignment, bone marrow signal. Some loss of disc height signal at intervertebral levels is consistent with disc desiccation and degenerative disc dise ase. There is mild multilevel spondylosis, stable. Probable hemangioma present within the L2 vertebra l body is stable. Accentuated lordosis is noted. There is no significant spinal stenosis. IMPRESSION: Small posterior disc herniation L4-5.
== END | disposition home or self-care (01) ==
LOC: RADMRIMAIN 07:12
PROVIDERS: ATTEND Physical Medicine & Rehabilitation
DX: M51.16 Intervertebral disc disorders with radiculopathy, lumbar region (principal); M51.26 Other intervertebral disc displacement, lumbar region
CPT/HCPCS: 72158; A9585

== ENCOUNTER 2022-05-24 10:42 | Day surgery (SDC) | payer OTHER ==
[2022-05-23 09:36] VITALS: BMI 20.6
[~2022-05-24 10:42] MED LIST changes: -AMINOPHYLLINE 500 MG/20 ML VIAL IV ONE; +LACTATED RINGERS 1,000 ML IV SCH; +LIDOCAINE VISCOUS 300 MG/15 ML CUP MUCOUS MEM ONE; -REGADENOSON 0.4 MG/5 ML SYRINGE IV ONE; +SODIUM CHLORIDE 0.9% 1,000 ML IV SCH
[2022-05-24] MEDS ORDERED: ONDANSETRON 4 MG/2 ML VIAL ONE (11:19)
[2022-05-24] MEDS ORDERED: LIDOCAINE 1% (10MG/ML) FOR IV START INTRADERMA ONE (11:30)
[2022-05-24] MEDS ORDERED: DEXAMETHASONE SOD PHOSPHATE 4 MG/ML 1 ML VIAL IV ONE (11:35)
[2022-05-24] MEDS ORDERED: SCOPOLAMINE 1 MG/72 HR PATCH TRANSDERM ONE (11:35)
[2022-05-24] MEDS ORDERED: ONDANSETRON 4 MG/2 ML VIAL IVP ONE (11:35)
--- NOTE | 2022-05-24 12:14 | CT ---
EXAMINATION TYPE: CT Chest wo con Veran Protocol DATE OF EXAM: 05/24/2022 COMPARISON: Outside chest CT May 10, 2022 HISTORY: Veran chest. CT DLP: 643 mGycm Automated exposure control for dose reduction was used. FINDINGS: Exam is for bronchoscopy planning and not for diagnostic purposes. Mild underlying emphysematous mccann ge is redemonstrated. Persistent anterior lobulated right midlung mass worrisome for neoplasm axial i mage 30 series 6. There are bilateral breast implants with suspicious infolding particularly on the r ight suggesting intracapsular rupture. Correlate clinically. Incidental 1.5 cm benign thin-walled cys t posterior liver near caudate lobe axial image 56 series 10. Underlying S-shaped scoliosis is presen t. IMPRESSION: As above.
[2022-05-24] MEDS ORDERED: PROPOFOL 10 MG/ML 20 ML VIAL IV ONE (12:28)
[2022-05-24] MEDS ORDERED: fentaNYL (PF) 50 MCG/ML 2 ML AMP ONE (12:28)
[2022-05-24] MEDS ORDERED: ROCURONIUM 10 MG/ML (5 ML VIAL) IV ONE (12:28)
[2022-05-24] MEDS ORDERED: GLYCOPYRROLATE 0.2 MG/ML 2 ML VIAL ONE (12:28)
[2022-05-24] MEDS ORDERED: NEOSTIGMINE 1 MG/ML 10 ML VIAL ONE (12:28)
[2022-05-24] MEDS ORDERED: MIDAZOLAM 2 MG/2 ML VIAL ONE (12:28)
[2022-05-24] MEDS ORDERED: SUCCINYLCHOLINE CHLORIDE 200 MG/10 ML VIAL IV ONE (12:28)
[2022-05-24] MEDS ORDERED: LIDOCAINE 2% INJ 20 MG/ML (2 ML VIAL) ONE (12:28)
[2022-05-24 13:56] VITALS: TEMP 97.7
[2022-05-24 14:24] VITALS: RESP 20
--- NOTE | 2022-05-24 14:44 | XR ---
EXAMINATION TYPE: XR chest 1V DATE OF EXAM: 05/24/2022 COMPARISON: Same day chest CT HISTORY: Postbronchoscopy TECHNIQUE: Single frontal upright view of the chest is obtained. FINDINGS: No pneumothorax after bronchoscopy and right lung sampling. Central right midlung mass red emonstrated. Increased interstitial markings bilateral lower lungs The cardiac silhouette size remain s within normal limits. Slight underlying scoliotic curvature in the lumbar spine. IMPRESSION: No right-sided pneumothorax.
[2022-05-24 14:49] VITALS: BP 118/70; PULSE 66
--- NOTE | 2022-05-24 16:40 | P.PCN ---
Date of Procedure: 05/24/22 Operative Findings: Operative Findings: 1 right upper lobe mass Postoperative Diagnosis: 1 right upper lobe mass Procedure(s) Performed: 1 flexible bronchoscopy, airway inspection 2 navigation bronchoscopy, transbronchial biopsy of a right on the right upper lobe mass, brushing of the right upper lobe mass, BAL of the right upper lobe 3 EBUS and transbronchial needle aspirate of the right upper lobe mass Surgeon: Johny Dia Utility Teller #1: Nonw Estimated Blood Loss (ml): 5 cc Pathology: TBBX, brushings and BAL of the right upper lobe and a EBUS guided needle aspirate of the right upper lobe mass Condition: stable Disposition: same day Operative Findings: The patient had a preoperative computed tomography scan of the chest using the Veran protocol. The CAT scan images were reviewed. The right upper lobe opacity was identified it was mapped appropriately. The CAT scan images are uploaded into a USB and then into the [employer] Navigation tower. After obtaining the consent the patient was taken to the OR suite he was intubated and put on mechanical ventilation by anesthesia then the scope was advanced to the ET tube until the Trachea was seen and it was normal and then the lorena appears normal then the scope advanced to the left main and BRUNA LB1- LB3 were seen and no endobronchial lesions were seen then the scope advanced to the lingula and the LB4 and LB5 were seen and no endobronchial lesions were seen the scope retracted and advanced to the left lower lobes LB6 to LB12 were seen one by one and no endobronchial lesions, then the scope was retracted back to the lorena and advanced to the Right main and RUL RB1 and RB2 and RB3 were seen one by one and there was narrowing and endobronchial irregularities and possible tumor involving the anterior segment of the right upper lobe.. The bronchoscope was then retracted and advanced to the BI and RML RB4 and RB5 were seen and no endobronchial lesions were seen then it was retracted and advanced to the RLL RB6 to RB12 were seen one by one and no endobronchial lesions. Navigation bronchoscopy was performed. The main lorena and the secondary lorena on the left were used as the reference points and appropriate calibration was done. Following that, using a navigation guidance , the bronchoscope was advanced to the anterior segment of the RUL and under navigation guidance TBBX and brushings of the RUL mass was done. I also performed a bronchioloalveolar lavage of the right lower lobe superior segment and a total of 80 mL of fluid was infused and 30 mL was suctioned back and this will be sent for cytology and microbial cultures. EBUS was also done and the the right hilar mass was visualized and EBUS guided TBNA was done using a 21 guage needle. No complications. No other mediastinal LN visualized. The bronchoscope was removed, the patient will be extubated and then transferred to recovery. A follow-up chest x-ray will be done in recovery.
== END 2022-05-24 14:56 | disposition home or self-care (01) ==
LOC: ORWHC2ENDO 10:42
PROVIDERS: ATTEND Internal Medicine Critical Care Medicine
DX: R91.8 Other nonspecific abnormal finding of lung field (principal); E78.5 Hyperlipidemia, unspecified; I48.91 Unspecified atrial fibrillation; F17.210 Nicotine dependence, cigarettes, uncomplicated; J44.9 Chronic obstructive pulmonary disease, unspecified; K58.9 Irritable bowel syndrome, unspecified; Z88.2 Allergy status to sulfonamides; Z79.51 Long term (current) use of inhaled steroids; Z79.899 Other long term (current) drug therapy; Z90.89 Acquired absence of other organs; Z98.890 Other specified postprocedural states; Z82.49 Family history of ischemic heart disease and other diseases of the circulatory system; Z90.710 Acquired absence of both cervix and uterus
CPT/HCPCS: 88104; 88108; 88305; 88173; 88342; 88341; 71045; 71250; 31625; 31624; 31627; 31652; J2250; J0330; J1100; J2710; J2405; J3010; J2704; J2001; 31623

== ENCOUNTER → 2022-06-06 | Outpatient (CLI) | payer OTHER ==
--- NOTE | 2022-06-06 09:38 | MR ---
EXAMINATION TYPE: MR brain wo/w con DATE OF EXAM: 06/06/2022 COMPARISON: None HISTORY: Transient left arm weakness. Right lung mass TECHNIQUE: Multiplanar, multisequence images of the brain and brainstem is performed without and with IV contras t, utilizing 6 mL intravenous Gadavist . FINDINGS: Diffusion weighted images demonstrate no evidence of a recent infarct or other diffusion ab normality. There a few scattered focal areas of abnormal signal seen throughout both cerebral hemisp heres in a nonspecific pattern. The ventricular system and cisternal spaces are normal in size and ap pearance. The brain volume is age appropriate. Midline structures demonstrate normal morphology. The craniocervical junction appears within normal limits. Post contrast images demonstrate no abnormal enhancement. The dural venous sinuses appear pa tent. Changes of chronic sinusitis are noted in the orbits are symmetric. There is heterogeneous signal involving the pineal gland which measures 8 mm and is too small to jose luis acterize would recommend a 6 month follow-up to assess pineal gland. IMPRESSION: 1. No evidence of enhancing mass or acute stroke. 2. Nonspecific white matter findings the seen with matter ischemia or demyelinating process. Correlat e clinically. 3. There is heterogeneous signal involving the pineal gland which measures 8 mm and is too small to c haracterize would recommend a 6 month follow-up to assess pineal gland. May be related to calcificati on within a prominent pineal gland. Differential diagnosis would include pineocytoma.
== END | disposition home or self-care (01) ==
LOC: RADMRIMAIN 08:18
PROVIDERS: ATTEND Internal Medicine Hematology & Oncology
DX: C34.2 Malignant neoplasm of middle lobe, bronchus or lung (principal)
CPT/HCPCS: 70553; A9585

== ENCOUNTER 2022-06-26 12:10 | Day surgery (SDC) | payer OTHER ==
[2022-06-25 11:05] VITALS: BMI 20.3
[2022-06-26 13:05] VITALS: BP 112/79; PULSE 75; RESP 16; TEMP 99.2
--- NOTE | 2022-06-26 14:33 | IR ---
Fluoroscopic portogram([facility]). HISTORY: Device malfunction. The patient presented to the CVL with a Duggan needle within the port. Preliminary fluoroscopy demonst rated the catheter to be intact. However, there appear to be two kinks near the origin of the cath eter just beyond the port. No blood could be aspirated. Injection therefore cannot be performed. No images submitted. 0.1 minutes of fluoroscopy. IMPRESSION: 1. There appear to be two kinks within the proximal aspect of the catheter just beyond the port. Surg ical consultation recommended.
== END 2022-06-26 13:38 | disposition home or self-care (01) ==
LOC: CATHCVL 12:10
PROVIDERS: ATTEND Radiology Diagnostic Radiology
DX: T85.51 Breakdown (mechanical) of gastrointestinal prosthetic devices, implants and grafts (principal)
CPT/HCPCS: 36598

== ENCOUNTER → 2022-10-01 | Outpatient (CLI) | payer OTHER ==
[2022-10-01 08:51] LABS: African American GFR (CKD) >90 (>60 ml/min/1.73 sqM); Blood Urea Nitrogen 12 mg/dL (7-17); Non-African American GFR(CKD) >90 (>60 ml/min/1.73 sqM)
--- NOTE | 2022-10-01 09:43 | CT ---
EXAMINATION TYPE: CT chest w con DATE OF EXAM: 10/01/2022 COMPARISON: 05/24/2022 and PET/CT 05/22/2022, ultrasound 05/06/2018 HISTORY: f/u lung ca CT DLP: 164.10 mGycm Automated exposure control for dose reduction was used. TECHNIQUE: CT scan of the chest is performed with IV Contrast, patient injected with 70 mL of Isovue 300. MIP I mages are created on CT scanner and reviewed. 3D reconstructed images are created on an independent w orkstation and reviewed. FINDINGS: LUNGS: Right anterior perihilar mass involving the right upper and right middle lobes is significantl y improved compared with prior examination. There are several small groundglass nodules within the ri ght upper lobe that are relatively unchanged. The left lung is clear. There are no pleural effusions and there is no pneumothorax. MEDIASTINUM: Enlarged precarinal lymph node measuring 10 mm is smaller than on prior examination wher e it measured 15 mm. OTHER: Stable 14 mm benign appearing fat-containing lesion in the caudate lobe. Small 5 mm enhancing lesion in the gallbladder wall posteriorly. Small left upper quadrant splenule. Bilateral breast imp lants with suspicion of intracapsular rupture on the right. Right internal jugular vein chest port wi th catheter tip at the SVC/RA junction. No osseous destructive lesions. IMPRESSION: 1. Significantly improved right anterior perihilar mass involving the right upper and right middle lo bes. Similar improvement in the enlarged precarinal lymph node. 2. Tiny groundglass nodules in the right upper lobe are fairly stable and nonspecific. 3. Small enhancing lesion in the gallbladder wall posteriorly is likely a gallbladder polyp and has b een present since 2018. No further follow-up is needed.
== END | disposition home or self-care (01) ==
LOC: RADPROMAIN 08:01
PROVIDERS: ATTEND Internal Medicine Hematology & Oncology
DX: C34.2 Malignant neoplasm of middle lobe, bronchus or lung (principal); R59.0 Localized enlarged lymph nodes; R91.8 Other nonspecific abnormal finding of lung field; K82.8 Other specified diseases of gallbladder
CPT/HCPCS: 82565; 84520; 71260; 36415; J1642; Q9967

== ENCOUNTER → 2023-01-23 | Outpatient (CLI) | payer OTHER ==
[2023-01-23 11:49] LABS: African American GFR (CKD) >90 (>60 ml/min/1.73 sqM); Blood Urea Nitrogen 10 mg/dL (7-17); Non-African American GFR(CKD) >90 (>60 ml/min/1.73 sqM)
--- NOTE | 2023-01-23 13:05 | CT ---
EXAMINATION TYPE: CT ChestAbdPelvis w con CT DLP: 525.00 mGycm, Automated exposure control for dose reduction was used. DATE OF EXAM: 01/23/2023 12:26 PM COMPARISON: CT chest 05/24/2022, PET/CT 05/22/2022 CLINICAL INDICATION:Female, 57 years old with history of C18.2 colon cancer; [facility], Technique: Multiple axial images of the chest, abdomen, and pelvis were obtained following the intrav enous administration of 100 mL Isovue-300. Oral contrast administered. Two-dimensional coronal and sa gittal reconstructions were obtained. Findings: CHEST: LUNGS/ PLEURA: No pleura effusion or pneumothorax. Increased patchy groundglass and consolidative opa cities within the right upper lung from prior examination. The left lung is clear. Decreased size of right perihilar masses from prior examination. AIRWAY: Patent and unremarkable.. HEART: Size within normal limits. No pericardial effusion. MEDIASTINUM: Stable enlarged subcarinal this was not FDG avid on prior PET/CT decreased size of 0.8 c m short axis precarinal lymph node, previously 1.5 cm short axis. Left measuring up to 1.9 cm short a xis. VASCULATURE: No aortic aneurysm. Right chest wall IJ Mediport central venous catheter with distal ti p terminating at the superior cavoatrial junction. MUSCULOSKELETAL: No acute osseous abnormalities. N o aggressive osseous lesion. SOFT TISSUES/LYMPH NODES: Bilateral breast prosthesis with similar intracapsular rupture of the right breast prosthesis. LOWER NECK: No significant findings. ABDOMEN: ABDOMEN LIVER: A couple of subcentimeter right hepatic lobe hypodense foci which are too small characterize. Stable segment 1 1.6 cm cyst. GALLBLADDER AND BILE DUCTS: Unremarkable. PANCREAS: Unremarkable. SPLEEN: Unremarkable. ADRENAL GLANDS: Unremarkable. KIDNEYS AND URETERS: No evidence of hydronephrosis or renal calculus. The kidneys enhance symmetrical ly without suspicious focal lesion. PELVIS BLADDER: Poorly visualized due to streak artifact hip prosthesis. REPRODUCTIVE: Poorly visualized due to streak artifact hip prosthesis. ABDOMEN & PELVIS STOMACH AND BOWEL: Stomach and duodenum are unremarkable. No focal bowel wall thickening Enteric cont rast reaches the descending colon. No evidence of bowel obstruction. PERITONEUM: No evidence of pneumoperitoneum or free fluid. VASCULATURE: Mild atherosclerotic calcifications are present throughout the abdominal aorta and its b ranches. No abdominal aortic aneurysm. MUSCULOSKELETAL: No acute osseous abnormalities. No aggressive osseous lesion. Degenerative changes o f the pubic symphysis. Bilateral total hip arthroplasty changes. LYMPH NODES: No gross evidence for lymphadenopathy. SOFT TISSUE/ABDOMINAL WALL: Unremarkable IMPRESSION: 1. Positive response to treatment with decreased size of right perihilar mass and precarinal mediast inal lymph node that were both FDG-positive a prior exam. 2. Development of right upper lung patchy groundglass and consolidative opacities. Etiologies includ e posttreatment pneumonitis versus infectious etiology. Attention on follow-up exam. 3. Stable enlarged subcarinal lymph node which was not FDG avid on prior PET/CT. 4. No evidence for metastatic disease within the abdomen or pelvis.
== END | disposition home or self-care (01) ==
LOC: RADPROMAIN 10:22
PROVIDERS: ATTEND Internal Medicine Hematology & Oncology
DX: C34.2 Malignant neoplasm of middle lobe, bronchus or lung (principal); C18.2 Malignant neoplasm of ascending colon; R12 Heartburn; E78.5 Hyperlipidemia, unspecified; K58.9 Irritable bowel syndrome, unspecified; R91.8 Other nonspecific abnormal finding of lung field; R59.0 Localized enlarged lymph nodes
CPT/HCPCS: 82565; 84520; 71260; 74177; 36415; Q9967

== ENCOUNTER → 2023-05-15 | Outpatient (CLI) | payer OTHER ==
[2023-05-15 11:45] LABS: African American GFR (CKD) >90 (>60 ml/min/1.73 sqM); Blood Urea Nitrogen 11 mg/dL (7-17); Non-African American GFR(CKD) >90 (>60 ml/min/1.73 sqM)
--- NOTE | 2023-05-15 12:23 | CT ---
EXAMINATION TYPE: CT ChestAbdPelvis w con CT DLP: 438.7 mGycm, Automated exposure control for dose reduction was used. DATE OF EXAM: 05/15/2023 12:13 PM COMPARISON: CT chest abdomen pelvis 01/23/2023, CT chest 10/01/2022 CLINICAL INDICATION:Female, 58 years old with history of C34.2 lung ca; [facility], f/u lung CA stage 3 Technique: Multiple axial images of the chest, abdomen, and pelvis were obtained following the intrav enous administration of 100 mL Isovue-300. Oral contrast administered. Two-dimensional coronal and sa gittal reconstructions were obtained. Findings: CHEST: LUNGS/ PLEURA: No pleura effusion or pneumothorax. Unchanged patchy groundglass and consolidative opa cities within the right upper lung from prior examination. The left lung is clear. No significant daphne nge in right perihilar masses from prior examination. No new suspicious pulmonary nodules or masses. AIRWAY: Patent and unremarkable.. HEART: Size within normal limits. No pericardial effusion. MEDIASTINUM: Decreased size of subcarinal lymph node. Stable precarinal lymph node with fatty hilum. VASCULATURE: No aortic aneurysm. Right chest wall IJ Mediport central venous catheter with distal ti p terminating at the superior cavoatrial junction. MUSCULOSKELETAL: No acute osseous abnormalities. N o aggressive osseous lesion. SOFT TISSUES/LYMPH NODES: Bilateral breast prosthesis with similar intracapsular rupture of the right breast prosthesis. LOWER NECK: No significant findings. ABDOMEN: ABDOMEN LIVER: A couple of subcentimeter right hepatic lobe hypodense foci which are too small characterize. Stable segment 1 1.6 cm cyst. GALLBLADDER AND BILE DUCTS: Unremarkable. PANCREAS: Unremarkable. SPLEEN: Unremarkable. ADRENAL GLANDS: Unremarkable. KIDNEYS AND URETERS: No evidence of hydronephrosis or renal calculus. The kidneys enhance symmetrical ly without suspicious focal lesion. PELVIS BLADDER: Poorly visualized due to streak artifact hip prosthesis. REPRODUCTIVE: Poorly visualized due to streak artifact hip prosthesis. ABDOMEN & PELVIS STOMACH AND BOWEL: Stomach and duodenum are unremarkable. No focal bowel wall thickening Enteric cont rast reaches the transverse colon. No evidence of bowel obstruction. PERITONEUM: No evidence of pneumoperitoneum or free fluid. VASCULATURE: Mild atherosclerotic calcifications are present throughout the abdominal aorta and its b ranches. No abdominal aortic aneurysm. Pelvic phleboliths. MUSCULOSKELETAL: No acute osseous abnormalities. No aggressive osseous lesion. Degenerative changes o f the pubic symphysis. Bilateral total hip arthroplasty changes. LYMPH NODES: No gross evidence for lymphadenopathy. SOFT TISSUE/ABDOMINAL WALL: Unremarkable IMPRESSION: 1. Stable right perihilar infiltrative mass with stable precarinal lymph node. No new suspicious pul monary nodules or masses. 2. Stable right upper lobe patchy groundglass and consolidative opacities. Likely infectious/pulmona ry process. 3. Decreased size of subcarinal lymph node from prior examination. 4. No evidence for metastatic disease within the abdomen or pelvis.
== END | disposition home or self-care (01) ==
LOC: RADPROMAIN 10:12
PROVIDERS: ATTEND Internal Medicine Hematology & Oncology
DX: C34.2 Malignant neoplasm of middle lobe, bronchus or lung (principal); E78.5 Hyperlipidemia, unspecified; E05.90 Thyrotoxicosis, unspecified without thyrotoxic crisis or storm; R12 Heartburn; R91.8 Other nonspecific abnormal finding of lung field
CPT/HCPCS: 82565; 84520; 71260; 74177; 36415; J1642; Q9967

== ENCOUNTER → 2023-09-17 | Outpatient (CLI) | payer OTHER ==
[2023-09-17 12:10] LABS: African American GFR (CKD) >90 (>60 ml/min/1.73 sqM); Blood Urea Nitrogen 13 mg/dL (7-17); Non-African American GFR(CKD) >90 (>60 ml/min/1.73 sqM)
--- NOTE | 2023-09-24 10:08 | CT ---
EXAMINATION TYPE: CT ChestAbdPelvis w con CT DLP: 595.80 mGycm, Automated exposure control for dose reduction was used. DATE OF EXAM: 09/17/2023 12:59 PM COMPARISON: CT chest abdomen pelvis 05/15/2023 and before CLINICAL INDICATION:Female, 58 years old with history of R05.9 Cough; PHH, Hx lung ca, routine follow up. TECHNIQUE: Multiple axial images of the chest, abdomen, and pelvis were obtained. Two-dimensional cor onal and sagittal reconstructions were obtained. Contrast used:100 mL of Isovue 300 with IV Contrast, Oral contrast used: with Oral Contrast FINDINGS: CHEST: Right chest Mediport with its catheter tip in the SVC near the cavoatrial junction. LUNGS/ PLEURA: Biapical scarring is stable. Unchanged small right upper lobe groundglass opacities li gene sequela of infectious/inflammatory process. There is a stable appearance of ill-defined right pe rihilar infiltrative masslike opacity. A new solid 0.9 cm nodule image 42 series 4 in the mid anterio r right lower lobe. Left lung is stable and clear. No pleural effusion or pneumothorax. AIRWAY: Thin strandy secretion across the right mainstem bronchus and mid to distal trachea. Central airways are otherwise clear. LOWER NECK: No significant findings. MEDIASTINUM: Stable precarinal node with fatty hilum and short axis dimension of 0.[address] able mediastinum without evidence for new or enlarging adenopathy.. HEART: Heart size upper normal. No significant coronary arterial calcification.. Trace pericardial ef fusion. VASCULATURE: Mild aortic atherosclerotic disease. Mild aortic valve calcification. The ascending aor ta is 2.9 cm, proximal arch is 2.75 cm and the distal arch is mildly ectatic at 3 cm. Mid descending aorta is 2.5 cm. No evidence of dissection. Pulmonary trunk measures 2.2 CM. Pulmonary trunk is nas l in size. Grossly preserved enhancement of the pulmonary arteries, in the limits of non-CTA exam. SOFT TISSUES/LYMPH NODES: Stable soft tissues. No axillary adenopathy. Bilateral breast implants red emonstrated. Possible intracapsular rupture on the right appearance similar to before. MUSCULOSKELETAL: No acute osseous abnormality or destructive bone lesion. Mild degenerative changes t hroughout the spine similar to previous. A vague rounded 1.6 cm focus of sclerosis in the left superi or T11-T12 vertebral body remains stable compared to priors back to 05/15/2017. OTHER: No other significant finding. ABDOMEN PELVIS: ABDOMEN LIVER: Stable without evidence of mass. Unchanged small hypodensity in the caudate compatible with a cyst. GALLBLADDER AND BILE DUCTS: Possible tiny gallstones. No acute inflammatory process or biliary dilata tion. PANCREAS: Unremarkable. SPLEEN: Spleen and adjacent splenule are stable. ADRENAL GLANDS: Stable without evidence of mass.. KIDNEYS AND URETERS: Kidneys concentrate and excrete contrast symmetrically. No hydronephrosis or mas ses visualized. PELVIS Evaluation of the pelvis limited by beam hardening artifact resulting from hip arthroplasties. BLADDER: Grossly unremarkable. REPRODUCTIVE: Not well seen. Uterus likely removed. ABDOMEN & PELVIS STOMACH AND BOWEL: Stomach and duodenum contain no remaining contrast, appear grossly unremarkable. C ontrast traverses the small bowel loops and is present throughout the majority of the colon. No evide nce of obstruction. The appendix is not clearly seen but no inflammatory process is seen in the peric ecal region. Slightly thickened appearance of the wall of the rectosigmoid colon is probably from non distention, with mild inflammatory process not excludable. PERITONEUM/RETROPERITONEUM: No evidence of pneumoperitoneum or free fluid. VASCULATURE: Moderate mixed atherosclerotic disease of the aorta and branches. Minimal ectasia of the infrarenal portion without evidence of aneurysm. Maximal diameter 2.5 cm. Portal vein and splenic ve in are enhancing. MUSCULOSKELETAL: No acute osseous abnormality or destructive bone lesion. Mild degenerative changes t hroughout the spine similar to previous. Similar vague rounded 1.6 cm focus of sclerosis in the left superior T11-T12 vertebral body remains stable compared to priors back to 05/15/2017. There appear to be 6 lumbar type vertebral bodies. Mild/moderate mid lumbar apex right scoliosis. Deg enerative changes of the SI joints and bilateral hip arthroplasties. Pelvis and sacrum appear intact. LYMPH NODES: No evidence of lymphadenopathy. SOFT TISSUES/ABDOMINAL WALL: Unremarkable OTHER: No other significant finding. IMPRESSION: 1. Stable appearance of right perihilar infiltrative masslike opacity. 2. A new 0.9 cm right lower lobe pulmonary nodule, highly suspicious for metastasis. 3. Stable mediastinal nodes, including borderline prominent precarinal node. 4. Stable appearance of the abdomen and pelvis, without evidence of metastatic disease.
== END | disposition home or self-care (01) ==
LOC: RADPROMAIN 10:28
PROVIDERS: ATTEND Internal Medicine Hematology & Oncology
DX: R91.8 Other nonspecific abnormal finding of lung field (principal); R91.1 Solitary pulmonary nodule; C34.2 Malignant neoplasm of middle lobe, bronchus or lung; E03.9 Hypothyroidism, unspecified; E78.5 Hyperlipidemia, unspecified; R12 Heartburn
CPT/HCPCS: 82565; 84520; 71260; 74177; J1642; Q9967

== ENCOUNTER → 2023-10-18 | Outpatient (CLI) | payer OTHER ==
--- NOTE | 2023-10-20 14:39 | PE ---
EXAMINATION TYPE: PET CT fusion skull to thigh DATE OF EXAM: 10/18/2023 COMPARISON: CT chest abdomen pelvis 09/17/2023 Prior PET/CT: 05/22/2022, report is unavailable. HISTORY: Lung cancer TECHNIQUE: Following the intravenous administration of 12.83 mCi of F-18 FDG, whole body images are performed from the skull base to the midthigh. Images are reviewed on the computer in the coronal, a xial, and sagittal planes. Reconstructed rotating images are created on independent workstation and reviewed on the computer. A localization and attenuation correction CT is performed in conjunction with the PET scan. DLP: 268.12 mGycm SCAN: Subsequent Blood glucose: 94 mg/dL Average Mediastinum SUV: 1.83 Average Liver SUV: 2.34 FINDINGS: NECK: No abnormal uptake THORAX: Previous abnormal uptake within the left hilar mass has significantly diminished over the int erval. This is in the more normal range at this time averaging 1.54, example image 107. There is a new focus of radiotracer accumulation within the small nodule in the peripheral right lung , image 112, SUV 2.51 ABDOMEN: No abnormal uptake PELVIS: No abnormal uptake OSSEOUS STRUCTURES: No abnormal uptake LOCALIZATION CT: Bilateral breast prostheses are present. Ruptured right breast prosthesis is not exc luded. COMPARISON: The lateral tiny nodule is new from comparison. The right perihilar mass remains present although the SUV has significantly diminished over the interval. Previous suspected mediastinal nodes not identified on the current PET/CT. IMPRESSION: 1. Significant improvement of radiotracer uptake in the previous right hilar mass. 2. New punctate peripheral right mid lung nodule suspicious for new metastatic lesion.
== END | disposition home or self-care (01) ==
LOC: RADPETMAIN 07:13
PROVIDERS: ATTEND Internal Medicine Hematology & Oncology
DX: R91.1 Solitary pulmonary nodule (principal); C34.2 Malignant neoplasm of middle lobe, bronchus or lung
CPT/HCPCS: 78815; A9552

== ENCOUNTER 2023-11-14 06:25 | Day surgery (SDC) | payer OTHER ==
[2023-11-12 12:43] VITALS: BMI 22.1
[2023-11-14] MEDS: LACTATED RINGERS 1,000 ML IV SCH (07:25)
[2023-11-14] MEDS ORDERED: LACTATED RINGERS 1,000 ML IV SCH (07:34)
[2023-11-14] MEDS ORDERED: GLYCOPYRROLATE 0.2 MG/ML 2 ML VIAL ONE (07:35)
[2023-11-14] MEDS ORDERED: MIDAZOLAM 2 MG/2 ML VIAL ONE (07:35)
[2023-11-14] MEDS ORDERED: PROPOFOL 10 MG/ML 20 ML VIAL IV ONE (07:35)
[2023-11-14] MEDS ORDERED: NEOSTIGMINE 1 MG/ML 10 ML VIAL ONE (07:35)
[2023-11-14] MEDS ORDERED: ROCURONIUM 10 MG/ML (5 ML VIAL) IV ONE (07:35)
[2023-11-14] MEDS ORDERED: fentaNYL (PF) 50 MCG/ML 2 ML AMP ONE (07:35)
[2023-11-14] MEDS ORDERED: LIDOCAINE 1% INJ 10MG/ML (20 ML MDV) ONE (07:35)
[2023-11-14] MEDS: ONDANSETRON 4 MG/2 ML VIAL IVP ONE ×2 (07:37→09:04)
[2023-11-14] MEDS: DEXAMETHASONE SOD PHOSPHATE 4 MG/ML 1 ML VIAL IV ONE (07:37)
[2023-11-14 07:52] VITALS: TEMP 97
--- NOTE | 2023-11-14 08:41 | P.PCN ---
Date of Procedure: 11/14/23 Operative Findings: Preoperative Diagnosis: Right lower lobe nodule, 9mm Postoperative Diagnosis: Right lower lobe nodule, 9mm Procedure(s) Performed: Flexible bronchoscopy Robotic-assisted bronchoscopy and addition to radial ultrasound evaluation of the right lower lobe pulmonary nodule Robotic-assisted test monitor needle aspirate, transbronchial biopsies, transbronchial brushing of the Right lower lobe pulmonary nodule in addition to a bronchioloalveolar lavage Anesthesia: RIVAS Surgeon: Johny Dia Estimated Blood Loss (ml): 0 Pathology: other Condition: stable Disposition: same day Operative Findings: A physical exam was performed. Informed consent was obtained from the patient after explaining all the risks (pneumothorax, life threatening bleeding, infection and adverse effects due to medications), benefits and alternatives to the procedure which the patient appeared to understand and so stated. The patient was connected to the monitoring devices. General anesthesia was induced and the patient was intubated by anesthesia. A final timeout was performed and the procedure confirmed by the attending staff bronchoscopist. The bronchoscope was inserted and the airway examined. The airway examination was within normal limits. There was some limited secretions that were suctioned out without any major difficulties. The flexible bronchoscope was removed and the robotic bronchoscope was inserted. Registration was completed. I next guided the robotic bronchoscope using the navigation system into the right lower lobe lateral segment segment. Once in proper position, the bronchoscope was frozen. The radial EBUS probe was placed through the bronchoscope and confirmed abnormal u/s images vs normal lung. A needle was placed through the working channel and under fluoroscopic guidance, we sampled the area thought to have the mass twice. We then used a cloud biopsy pattern with ultrasound confirmation for 6 additional passes with the needle. I utilize a 21-gauge needle. Rapid on-site pathologic evaluation was done in the samples were adequate. U/S evaluation was then used to reconfirm location. Forceps were next introduced through working channel and extended the appropriate distance and 2 transbronchial biopsies were performed using fluoroscopic guidance. The u/s probe was then reinserted to confirm location. When confirmed this process was repeated for a total of 8 transbronchial biopsies. After reassessment with EBUS, a brush was placed through the extendable working channel for 1 pass with fluoroscopic guidance. U/S evaluation was then used to confirm location. 40ml of saline was then instilled into the area of the lesion. The robotic bronchoscope was removed and the airway inspected with a flexible bronchoscope and 10 ml of effluent from the BAL was collected. The patient was then re-intubated with an Olympus IT bronchoscope without difficutly. The airways were inspected and cleared of secretions and blood. Fluoroscopic check for pneumothorax was negative upon completion of the procedure. There was 0 ml blood loss with the procedure. FINDINGS: 1.The airways appeared normal 2 Successful navigation, ultrasonographic identification, and biopsies of Right lower lobe pulmonary nodule 3.The radial ultrasound view was initially eccentric and later on concentric v RECOMMENDATIONS: Await pathology and cytology results The referring physician will be alerted to the results when available. The patient was advised to follow up with the referring physician with the biopsy results Patient will be called with results.
[2023-11-14 09:04] VITALS: RESP 16
[2023-11-14] MEDS: LACTATED RINGERS 1,000 ML IV ONE (09:33)
--- NOTE | 2023-11-14 10:12 | XR ---
EXAMINATION TYPE: XR chest 1V DATE OF EXAM: 11/14/2023 COMPARISON: 05/24/2022, CT chest same day HISTORY: 58-year-old female post biopsy TECHNIQUE: Single frontal view of the chest is obtained. FINDINGS: Heart normal size. Hyperinflation. Right anterior chest wall injection port with catheter tip at the lower SVC. Bibasilar opacities in part related to the patient's overlying breast implants. Right perihilar and right basilar opacity. No appreciable pneumothorax. IMPRESSION: Bibasilar opacities in part related to overlying density from breast implants. Right per ihilar and right basilar density corresponding to biopsy opacity. No appreciable pneumothorax.
--- NOTE | 2023-11-14 10:49 | CT ---
Exam: CT Chest without contrast. Date: 11/14/2023. Comparison: 09/17/2023, 05/15/2023 History: Lung nodule. Technique: CT examination of the chest was performed without contrast. Coronal and sagittal reformats were performed. CT dose lowering techniques were used, to include: automated exposure control, adjus tment for patient size, and/or use of iterative reconstruction. FINDINGS: CHEST WALL: There are bilateral breast implants. There is at least intracapsular rupture on the right and probable left as well. Left is not entirely included on the evaluation. Right-sided Mediport is unchanged. Mediastinum and Faina: There is no axillary, mediastinal or hilar lymphadenopathy. Pleural and Pericardial spaces: There are no pleural or pericardial effusions. Upper Abdomen: The visualized upper abdomen is unremarkable. Cardiovascular: The thoracic aorta is normal in size. Lung Parenchyma and Airways: There is extensive airspace opacity seen in the right perihilar region t hroughout the right upper, right middle and right lower lobe which may relate to prior treatment mccann ges with malignancy also a possibility in that region. There is diffuse centrilobular groundglass nod ularity otherwise noted. There is a 1.2 cm right lower lobe pulmonary nodule previously measured 9.2 mm and is seen on series 4 image 202. Bones: No fracture or aggressive osseous lesion. IMPRESSION: 1. Enlarging right lower lobe pulmonary nodule. 2. Extensive changes within the right perihilar region may relate to posttreatment changes with resid ual malignancy not excluded.
--- NOTE | 2023-11-14 12:57 | FL ---
EXAMINATION TYPE: FL bronchoscopy DATE OF EXAM: 11/14/2023 FLUOROSCOPY Right lower lobe endobronchial biopsy. Fluoroscopy time of 1 minute 23 seconds was used. 1 Image/s do cument/s the procedure. 3.9348 Gycm2 DAP DOSE
[2023-11-14 14:36] VITALS: PULSE 64
== END 2023-11-14 10:18 | disposition home or self-care (01) ==
LOC: ORWHC2ENDO 06:25
PROVIDERS: ATTEND Internal Medicine Critical Care Medicine
DX: C34.31 Malignant neoplasm of lower lobe, right bronchus or lung (principal); E03.9 Hypothyroidism, unspecified; I48.91 Unspecified atrial fibrillation; E78.5 Hyperlipidemia, unspecified; F41.9 Anxiety disorder, unspecified; K58.9 Irritable bowel syndrome, unspecified; Z79.899 Other long term (current) drug therapy; Z98.890 Other specified postprocedural states; Z90.89 Acquired absence of other organs
CPT/HCPCS: 87798 ×3; 87496; 87498; 87529; 88108; 88305; 88342; 87502; 87634; 88341; 87070; 87205; 87116; 87102; 87206; 87635; 71045; 71250; 31628; 31629; 31623; 31624; J2250; J1100; J2710; J2405; J2001; J3010; J2704; S2900

== ENCOUNTER → 2024-02-16 | Outpatient (CLI) | payer OTHER ==
--- NOTE | 2024-02-16 17:01 | PE ---
EXAMINATION TYPE: PET CT fusion skull to thigh DATE OF EXAM: 02/16/2024 COMPARISON: 11/14/2023 CT Prior PET/CT: 10/18/2023 HISTORY: Middle lobe mass TECHNIQUE: Following the intravenous administration of 11.07 mCi of F-18 FDG, whole body images are performed from the skull base to the midthigh. Images are reviewed on the computer in the coronal, a xial, and sagittal planes. Reconstructed rotating images are created on independent workstation and reviewed on the computer. A localization and attenuation correction CT is performed in conjunction with the PET scan. DLP: 278.27 mGycm SCAN: Subsequent Blood glucose: 95 mg/dL Average Mediastinum SUV: 2.24 Average Liver SUV: 2.87 FINDINGS: NECK: No suspicious uptake THORAX: There is a small focus of radiotracer in the periphery of the right midlung, image 114, SUV 5 .19. The consolidation in the right perihilar region has background uptake averaging 2.32. ABDOMEN: No suspicious uptake PELVIS: No suspicious uptake OSSEOUS STRUCTURES: No suspicious uptake LOCALIZATION CT: Bilateral breast prostheses are present. There is rupture of the internal capsule ri ght breast prosthesis. Consolidation remains at the right perihilar region. COMPARISON: The focus of radiotracer currently identified is diminished from the comparison study. Th e consolidation in the right perihilar region appears similar. IMPRESSION: 1. Peripheral punctate nodularity with uptake measuring SUV 5.19 is diminished from the comparison of SUV 7.94. 2. No new suspicious areas of uptake to suggest new metastasis. 3. Persistent consolidation right perihilar region without suspicious radiotracer accumulation
== END | disposition home or self-care (01) ==
LOC: RADPETMAIN 06:23
PROVIDERS: ATTEND Internal Medicine Hematology & Oncology
DX: C34.2 Malignant neoplasm of middle lobe, bronchus or lung (principal); R91.8 Other nonspecific abnormal finding of lung field
CPT/HCPCS: 78815; A9552

== ENCOUNTER → 2024-05-19 | Outpatient (CLI) | payer OTHER ==
--- NOTE | 2024-05-19 12:45 | CT ---
EXAMINATION TYPE: CT chest w con CT DLP: 222.2 mGycm, Automated exposure control for dose reduction was used. DATE OF EXAM: 05/19/2024 12:13 PM COMPARISON: PET CT 02/26/2024, 10/18/2023 CT chest 11/14/2023, CT chest and pelvis 09/17/2023 CLINICAL INDICATION:Female, 59 years old with history of C34.2 LUNG CANCER; PHH, LUNG CA TECHNIQUE: Multiple axial images were obtained through the chest following the administration of 100 cc of Isovue 300. . Coronal and sagittal reformats reviewed. FINDINGS: LUNGS/ PLEURA: No pleural effusion or pneumothorax. Biapical scarring is redemonstrated. Stable appe arance of ill-defined right perihilar infiltrate and masslike opacity. Stable right upper lobe 7 mm g roundglass opacity (series 4, image 15). Decreased size of right lower lobe 6 mm pulmonary nodule (se yoselin 4, image 40). Previously measured 12 mm. Multiple new grouped round nodules within the anterior aspect of the right lower lobe with largest measuring up to 9 mm (series 4, image 48). At least 10 ne w nodules. AIRWAY: Patent and unremarkable.. HEART: Size within normal limits. Trace anterior pericardial effusion. MEDIASTINUM: No new enlarged lymphadenopathy greater than 1 cm short axis. VASCULATURE: No aortic aneurysm. Right chest wall IJ Mediport catheter distal tip terminating in the low SVC. MUSCULOSKELETAL: No acute osseous abnormalities. No aggressive osseous lesion. SOFT TISSUES/LYMPH NODES: Bilateral breast prosthesis with right breast at least intracapsular ruptur e. LOWER NECK: No significant findings. UPPER ABDOMEN: Caudate lobe 1.4 cm simple cyst. IMPRESSION: Stable appearance of right perihilar masslike region with interval decrease in size of previously see n right lower lobe pulmonary nodule now measuring 6 mm. Previously 12 mm on prior PET/CT. However mul tiple new grouped round pulmonary nodules identified within the right lower lobe anterior aspect. Fin dings are suspicious for progression of metastatic disease due to segmental distribution in relation to previous seen pulmonary nodule. Other etiologies include infectious/inflammatory bronchiolitis. Th is is thought to be less likely. Consider short-term follow-up CT.
== END | disposition home or self-care (01) ==
LOC: RADCTMAIN 11:06
PROVIDERS: ATTEND Internal Medicine Hematology & Oncology
DX: C34.2 Malignant neoplasm of middle lobe, bronchus or lung
CPT/HCPCS: 71260

== ENCOUNTER → 2024-06-04 | Outpatient (CLI) | payer OTHER ==
--- NOTE | 2024-06-06 00:10 | PE ---
EXAMINATION TYPE: PET CT fusion skull to thigh DATE OF EXAM: 06/04/2024 CLINICAL INDICATION:Female, 59 years old with history of C34.2 lung ca; TECHNIQUE: Following the intravenous administration of 13.89 mCi of F-18 FDG, whole body images are performed from the skull base to the midthigh. Images are reviewed on the computer in the coronal, axial, and sagittal planes. Reconstructed rotating images are created on independent workstation and reviewed on the computer. A non-contrast CT is performed in conjunction with the PET scan. Glucose level 101 mg/dL CT DLP: 402.48 mGycm, Automated exposure control for dose reduction was used. COMPARISON: CT 05/19/2024, 11/14/2023, 09/17/2023, 05/15/2023, PET/CT 02/16/2024, 10/18/2023, MRI: 06/06/2022 FINDINGS: Mediastinal SUV mean is 2.0. Hepatic parenchyma SUV mean is 2.8. SKULL BASE AND NECK: No suspicious radiotracer activity. CHEST, MEDIASTINUM, AND HILAR REGION: Stable appearance of right perihilar mass. Demonstrates a maximum SUV of 2.9 which is at background. Increased size of grouped pulmonary nodules within the anterior aspect of the right lower lung with t he largest now measuring 2.3 cm, previously 1.3 cm. Demonstrates a maximum SUV of 16.7. Stable right upper lobe 7 mm groundglass pulmonary nodule which does not demonstrate FDG activity but may be below sensitivity. Increasing size of right lower lobe consolidative opacity measuring 2.7 cm. Demonstrates a maximum HANDLEY V of 4.7. No mediastinal or hilar enlarged FDG avid lymph nodes. ABDOMEN AND PELVIS: No suspicious radiotracer activity. MUSCULOSKELETAL STRUCTURES: No suspicious radiotracer activity. OTHER CT: Bibasilar dependent subsegmental atelectasis. Mild bilateral carotid bulb calcifications. A nterior right chest wall IJ approach Mediport catheter with distal tip terminating at the superior ca va junction. Biapical scarring is redemonstrated. Trace anterior pericardial effusion. Bilateral radha st prosthesis with right breast redemonstrating at least intracapsular rupture. Cholelithiasis. Cauda te lobe hepatic cyst. Mild to moderate atherosclerotic calcification of the aorta and its branches. P ost surgical changes from bilateral hip arthroplasty changes. Uterus is poorly visualized and may be surgically absent. Mild degenerative changes throughout the visualized spine. Degenerative changes of the pubic symphysis. Mild rightward scoliosis of the thoracolumbar spine. IMPRESSION: 1. Increased size of grouped anterior right lower lung pulmonary nodules with largest measuring up t o 2.3 cm, previously 1.3 cm. Demonstrates intense radiotracer activity and is most consistent with me tastasis/recurrence. 2. Increased size of right lower lobe 2.7 cm consolidative opacity with mild radiotracer uptake abov e background. This is suspicious for metastasis. 3. Stable appearance of right perihilar mass with FDG activity at baseline levels consistent with tr eated malignancy. No other suspicious radiotracer activity. [facility], , 06/06/2024 12:08 AM
== END | disposition home or self-care (01) ==
LOC: RADPETMAIN 07:06
PROVIDERS: ATTEND Internal Medicine Hematology & Oncology
DX: C34.2 Malignant neoplasm of middle lobe, bronchus or lung
CPT/HCPCS: 78815

== ENCOUNTER → 2024-06-17 | Outpatient (CLI) | payer OTHER ==
--- NOTE | 2024-06-17 22:12 | MR ---
EXAMINATION TYPE: MR brain wo/w con DATE OF EXAM: 06/17/2024 COMPARISON: NONE HISTORY: Lung cancer, Right lung [facility] G-12C TECHNIQUE: Multiplanar, multisequence images of the brain and brainstem is performed without and with IV contras t, utilizing 6.5 mL intravenous Gadavist . FINDINGS: Diffusion weighted images demonstrate no evidence of a recent infarct or other diffusion ab normality. The ventricular system and cisternal spaces are normal in size and appearance. The brain volume is age appropriate. There is occasional focus of T2 hyperintensity scattered throughout the wh ite matter bilaterally. Approximately 20 scattered small lesions are seen. Lesions are nonspecific in appearance and distribution. Midline structures demonstrate normal morphology. The craniocervical junction appears within normal limits. Post contrast images demonstrate is 6 mm enhancing focus medial left cerebellar hemisphere a xial image 39 with surrounding T2 hyperintensity or vasogenic edema. There is a second high posterior right frontal 5 mm enhancing metastatic focus image 146. The dural venous sinuses appear patent. The visualized sinuses are clear and the globes are intact. IMPRESSION: 1. There are at least 2 small metastatic foci identified as detailed above. 2. There is background [id number] chronic small vessel ischemic change. [facility], , 06/17/2024 10:10 PM
== END | disposition home or self-care (01) ==
LOC: RADMRIMAIN 21:45
PROVIDERS: ATTEND Internal Medicine Hematology & Oncology
DX: C34.2 Malignant neoplasm of middle lobe, bronchus or lung
CPT/HCPCS: 70553

== ENCOUNTER 2024-08-14 23:46 | Inpatient (IN) | payer MEDICARE, OTHER ==
[2024-08-15] MEDS: KETOROLAC 15 MG/ML 1 ML VIAL IVP STA (00:36)
[2024-08-15] MEDS: MORPHINE SULFATE 2 MG/ML SYRINGE IVP STA (00:39)
[2024-08-15 00:54] LABS: Basophils % (A) 0 %; Eosinophils # (A) 0.2 k/uL (0-0.7); Eosinophils % (A) 2 %; HCT 41.1 % (34.0-46.0); HGB 13.6 gm/dL (11.4-16.0); Lymphocytes # (A) 0.9 k/uL (1.0-4.8); Lymphocytes % (A) 10 %; MCH 31.2 pg (25.0-35.0); MCHC 33.2 g/dL (31.0-37.0); MCV 94.2 fL (80.0-100.0); Mean Platelet Volume 6.7; Monocytes # (A) 0.7 k/uL (0-1.0); Monocytes % (A) 7 %; Neutrophils # (A) 7.3 k/uL (1.3-7.7); Neutrophils % (A) 78 %; Platelet Count 255 k/uL (150-450); RBC 4.36 m/uL (3.80-5.40); RDW 12.3 % (11.5-15.5); WBC 9.3 k/uL (3.8-10.6)
[2024-08-15 01:03] LABS: INR 0.9 (<1.2); Partial Thromboplastin Time 22.9 sec (22.0-30.0)
[2024-08-15 01:41] LABS: African American GFR (CKD) >90 (>60 ml/min/1.73 sqM); Anion Gap 4 mmol/L; Blood Urea Nitrogen 17 mg/dL (7-17); Carbon Dioxide 26 mmol/L (22-30); Chloride 104 mmol/L (98-107); Glucose 95 mg/dL (74-99); Sodium 134 mmol/L (137-145)
[2024-08-15 01:42] LABS: ALT 24 U/L (4-34); Albumin 3.8 g/dL (3.5-5.0); Calcium 9.1 mg/dL (8.4-10.2); Non-African American GFR(CKD) 85 (>60 ml/min/1.73 sqM); Total Bilirubin 0.5 mg/dL (0.2-1.3); Total Protein 6.9 g/dL (6.3-8.2)
[2024-08-15 01:54] LABS: AST 27 U/L (14-36); Alkaline Phosphatase 78 U/L (38-126); Magnesium 1.8 mg/dL (1.6-2.3); Potassium 4.2 mmol/L (3.5-5.1)
--- NOTE | 2024-08-15 02:11 | XR ---
EXAM: XR Chest, 2 Views CLINICAL HISTORY: ITS.REASON XR Reason: difficulty breathing TECHNIQUE: Frontal and lateral views of the chest. COMPARISON: No previous studies. FINDINGS: Lungs: There is consolidative change about the right perihilar region presumably the base of pneumonia. Presumed subsegmental atelectasis at the right lung base appeared. Presumed subsegmental atelectasis at the left lung base. Pleural space: Unremarkable. No pneumothorax. Heart: Heart is top normal in size. No cardiomegaly. Mediastinum: Unremarkable. Normal mediastinal contour. Bones/joints: Osteopenia. No acute fracture. Tubes, lines and devices: Right subclavian Port-A-Cath is noted in place with its tip at the mid superior vena cava. IMPRESSION: There is right perihilar consolidative change. Findings are most suggestive right perihilar pneumonia. Clinical correlation and short- term imaging is advised to document resolution.
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
--- NOTE | 2024-08-15 04:42 | CT ---
EXAM: CT Angiography Chest With Intravenous Contrast CLINICAL HISTORY: ITS.REASON CT Reason: cancer, CP TECHNIQUE: Axial computed tomographic angiography images of the chest with intravenous contrast. CTDI is 21.7 mGy and DLP is 333 mGy-cm. This CT exam was performed using one or more of the following dose reduction techniques: automated exposure control, adjustment of the mA and/or kV according to patient size, and/or use of iterative reconstruction technique. MIP reconstructed images were created and reviewed. COMPARISON: No relevant prior studies available. FINDINGS: Pulmonary arteries: Unremarkable. No pulmonary embolism. Aorta: No acute findings. No thoracic aortic aneurysm. Lungs: Patient has known RIGHT lung cancer. Masslike consolidation throughout the RIGHT hilar region with likely superimposed pneumonia involving the RIGHT upper, middle, and lower lobes. Recommend follow-up CT scan to evaluate resolution of pneumonia. Pleural space: Unremarkable. No significant effusion. No pneumothorax. Heart: Unremarkable. No cardiomegaly. No significant pericardial effusion. No evidence of RV dysfunction. Bones/joints: No acute fracture. No dislocation. Soft tissues: Bilateral breast implants. Lymph nodes: Unremarkable. No enlarged lymph nodes. Tubes, lines and devices: Port-A-Cath terminates in the SVC. IMPRESSION: Patient has known RIGHT lung cancer. Masslike consolidation throughout the RIGHT hilar region with likely superimposed pneumonia involving the RIGHT upper, middle, and lower lobes. Recommend follow-up CT scan to evaluate resolution of pneumonia.
[2024-08-15] MEDS: HYDROmorphone 1 MG/ML 1 ML SYRINGE IVP STA (05:55)
[2024-08-15] MEDS: cefTRIAXone IN SWFI 1,000 MG/10 ML SYRINGE IVP STA (05:59)
[2024-08-15] MEDS: AZITHROMYCIN 500 MG in SODIUM CHLORIDE 0.9% 250 ML IVPB STA (06:02)
[2024-08-15] MEDS: ONDANSETRON 4 MG/2 ML VIAL IVP STA (08:51)
[2024-08-15] MEDS: ACETAMINOPHEN TAB 325 MG TAB PO PRN (09:09)
[2024-08-15] MEDS: IBUPROFEN 600 MG TAB PO PRN (12:14)
[2024-08-15] MEDS ORDERED: NALOXONE 0.4 MG/ML 1 ML VIAL IV PRN (15:03)
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
[2024-08-15 15:50] LABS: Basophils % (A) 0 %; Eosinophils # (A) 0.2 k/uL (0-0.7); Eosinophils % (A) 2 %; HCT 36.8 % (34.0-46.0); HGB 12.3 gm/dL (11.4-16.0); Lymphocytes # (A) 0.5 k/uL (1.0-4.8); Lymphocytes % (A) 7 %; MCH 31.5 pg (25.0-35.0); MCHC 33.5 g/dL (31.0-37.0); MCV 94.2 fL (80.0-100.0); Mean Platelet Volume 7.1; Monocytes # (A) 0.6 k/uL (0-1.0); Monocytes % (A) 7 %; Neutrophils # (A) 6.6 k/uL (1.3-7.7); Neutrophils % (A) 81 %; Platelet Count 217 k/uL (150-450); RBC 3.91 m/uL (3.80-5.40); RDW 12.8 % (11.5-15.5)
[2024-08-15 16:03] LABS: ALT 19 U/L (4-34); AST 19 U/L (14-36); African American GFR (CKD) 90 (>60 ml/min/1.73 sqM); Alkaline Phosphatase 65 U/L (38-126); Anion Gap 2 mmol/L; Blood Urea Nitrogen 13 mg/dL (7-17); Calcium 8.4 mg/dL (8.4-10.2); Carbon Dioxide 28 mmol/L (22-30); Chloride 105 mmol/L (98-107); Glucose 147 mg/dL (74-99); Non-African American GFR(CKD) 78 (>60 ml/min/1.73 sqM); Potassium 3.7 mmol/L (3.5-5.1); Sodium 135 mmol/L (137-145); Total Bilirubin 0.3 mg/dL (0.2-1.3); Total Protein 5.8 g/dL (6.3-8.2)
[2024-08-15] MEDS: IPRATROPIUM-ALBUTEROL 3 ML NEB INHALATION SCH (16:47)
[2024-08-15] MEDS: HYDROcodone/APAP 10-325MG 1 EACH TAB PO SCH (17:27)
[2024-08-15] MEDS: [UNRECOGNIZED DRUG - OTHER] PO SCH (20:37)
[2024-08-16] MEDS: LEVOTHYROXINE 112 MCG TAB PO SCH (07:22)
[2024-08-16] MEDS: AZITHROMYCIN 500 MG TAB PO SCH (08:32)
[2024-08-16] MEDS: PANTOPRAZOLE 40 MG TABLET PO SCH (08:34)
[2024-08-16] MEDS: ENOXAPARIN 40 MG/0.4 ML SYRINGE SQ SCH (08:36)
[2024-08-16 11:11] LABS: Basophils % (A) 0 %; Eosinophils # (A) 0.1 k/uL (0-0.7); Eosinophils % (A) 1 %; HGB 12.9 gm/dL (11.4-16.0); Lymphocytes # (A) 0.5 k/uL (1.0-4.8); Lymphocytes % (A) 5 %; MCHC 32.3 g/dL (31.0-37.0); MCV 95.9 fL (80.0-100.0); Mean Platelet Volume 7.2; Monocytes # (A) 0.6 k/uL (0-1.0); Monocytes % (A) 6 %; Neutrophils # (A) 8.3 k/uL (1.3-7.7); Neutrophils % (A) 86 %; Platelet Count 218 k/uL (150-450); RBC 4.17 m/uL (3.80-5.40); RDW 12.4 % (11.5-15.5); WBC 9.7 k/uL (3.8-10.6)
[2024-08-16 11:24] LABS: ALT 20 U/L (4-34); AST 20 U/L (14-36); African American GFR (CKD) >90 (>60 ml/min/1.73 sqM); Albumin 3.6 g/dL (3.5-5.0); Albumin/Globulin Ratio 1.2; Alkaline Phosphatase 68 U/L (38-126); Anion Gap 5 mmol/L; Blood Urea Nitrogen 9 mg/dL (7-17); Calcium 8.8 mg/dL (8.4-10.2); Carbon Dioxide 29 mmol/L (22-30); Chloride 102 mmol/L (98-107); Globulin 2.9 g/dL; Glucose 119 mg/dL (74-99); Non-African American GFR(CKD) 85 (>60 ml/min/1.73 sqM); Potassium 4.1 mmol/L (3.5-5.1); Sodium 136 mmol/L (137-145); Total Bilirubin 0.3 mg/dL (0.2-1.3); Total Protein 6.5 g/dL (6.3-8.2)
--- NOTE | 2024-08-16 12:58 | P.PN ---
Subjective Progress Note Date: 08/16/24 HISTORY OF PRESENT ILLNESS: This is a 59-year-old female with a previous medical history signif icant for mixed hyperlipidemia, hypothyroidism, history of non-small cell lung cancer of the right lung status post 31 radiation therapy followed by chemo and immunotherapy with Imfinzi in 2019 and currently on Krazati 600 mg orally twice every day has been under the care of Dr. Ernst from oncology, patient was in her usual state of health but that last week Saturday when she came down with fever an d chills associated increased cough and shortness of breath, she was diagnosed with pneumonia after she went to urgent care in [facility], she was placed on doxycycline 100 mg orally twice a day along with steroid pack, she was feeling a lot better, Saturday and Saturday she was feeling better however later on the week she started getting more short of breath more coughing no phlegm production, she felt like she was having more issues, she tried to get a hold of her oncologist that she could not she ended up coming to the ER for evaluation she was seen yesterday ended up having a chest x-ray that showed right perihilar pneumonia this was followed by a CT scan of the chest that was negative for pulmonary embolism however it did show evidence of possible pneumonia on top of right upper middle and lower right lower lobe cancer patient was started on IV antibiotic in the form of Zithromax 500 mg IV piggyback x 1 followed by Rocephin 1 g of piggyback every 24 hours, she was admitted to the hospital for further evaluation, her oxygenation was about 94% room air, currently she is on 2 L nasal cannula, she was placed on nebulized treatment in the form of DuoNeb 3 mL nebulization 4 times every day, sputum culture will be done, Legionella urine antigen antigen will be done as well mycoplasma IgG and IgM was sent, pulmonary consultation was obtained from Dr. Ellis 08/16: Patient is feeling better today, she continues to have some cough, minimal phlegm production, she continues to have some right-sided chest pain, she has no pleurisy, or hemoptysis at this time, patient did have a CT scan of the chest yesterday that was negative for pulmonary embolism, continue oxygen support, continue current treatment plan with Rocephin 1 g every back every 24 hours as well as Zithromax 500 mg orally once every day I will follow-up with the patient very closely, pulmonary consultation is in order, patient has not had a bowel movement, we will start her on Senokot twice a day as well as MiraLAX 17 g in 8 ounce of water once every day, I will also start the patient on Xanax 0.25 mg orally twice a day because she is getting more anxious about staying in the hospital. REVIEW OF SYSTEMS: Constitutional: No documented fever, no chills, no night sweats. No weight change. No weakness, fatigue or lethargy. No daytime sleepiness. EENT: No headache. No blurred vision or double vision, no loss of vision. No loss of Hearing, no ringing in the ears, no dizziness. No nasal drainage or congestion. No epistaxis. No sore throat. Lungs: No shortness of breath, no cough, no sputum production. No wheezing. Reports dyspnea with activity. Cardiovascular: No chest pain, no lower extremity edema. No palpitations. No paroxysmal nocturnal dyspnea. No orthopnea. No lightheadedness or dizziness. No syncopal episodes. Abdominal: Reports abdominal pain. No nausea, vomiting. No diarrhea. No con stipation. No bloody or tarry stools reports loss of appetite. Genitourinary: No dysuria, increased frequency, urgency. No urinary retention. Musculoskeletal: No myalgias. No muscle weakness, no gait dysfunction, no frequent falls. No back pain. No neck pain. Integumentary: No wounds, no lesions. No rash or pruritus. No unusual bruising. No change in hair or nails. Neurologic: No aphasia. No facial droop. No change in mentation. No head injury. No headache. No paralysis. No paresthesia. Psychiatric: No depression. No anxiety. No mood swings. Endocrine: No abnormal blood sugars. No weight change. PHYSICAL EXAMINATION: General: 59-year-old female laying down in bed in minimal respiratory distress. HEENT: Head is atraumatic, normocephalic, pupils were equal round reactive to light and recommendation, extraocular muscle movement were intact, sclera nonicteric, conjunctivae were pale, mucous membranes of the mouth are somewhat dry. Neck: Supple, no JVP, normal carotid upstroke bilaterally, no lymphadenopathy. Chest: Decreased breath sounds at the bases, few rhonchi, minimal expiratory wheezes, no chest wall tenderness, no intercostal retractions. Heart: First heart sound is normal, second heart sounds normal there is no gallop or murmur no rubs or heaves. Abdomen: Soft, nontender, nondistended, positive bowel sounds. Extremities: There is no edema no calf tenderness DP +2 bilaterally. Neurologic examination: Patient is awake alert and oriented x3, cranial nerves II-12 appear grossly intact, muscle power were 5 out of 5 in upper extremities and 5 out of 5 in bilateral lower extremities, deep tendon reflexes normal bilaterally. ASSESSMENT AND PLAN: 1. Right perihilar community-acquired pneumonia in a patient with non-small cell lung cancer involving the right upper middle and lower lobe. Continue patient on oxygen 2 L nasal cannula, sputum culture, urine Legionella antigen, mycoplasma antibody IgG and IgM, start the patient on Rocephin 1 g IV piggyback every 24 hours, Zithromax 500 mg orally once every day, DuoNeb nebulization 3 mL every 6 hours [id number], follow-up with the patient very closely, pulmonary consultation appreciated, add Mucinex 1200 mg orally twice every day, continue incentive spirometer. 2. Non-small cell lung cancer of the right lung involving the right upper middle and lower lobe has been under the care of Dr. Ernst did receive radiation therapy as well as chemo immunotherapy 2021 currently on Krazati 600 mg orally twice every day. Continue with that. 3. Mixed hyperlipidemia. Continue atorvastatin 40 mg orally once every day, monitor lipid panel, keep LDL 55-70. 4. Hypothyroidism. Continue patient on Unithroid 112 mcg orally once every day. 5. Spondylosis of the lumbar spine. Continue patient on hydrocodone 10/325 mg orally 4 times every day as needed. 6. History of lone atrial fibrillation currently in sinus rhythm. 7. DVT prophylaxis. Lovenox 40 mg subcutaneously every 24 hours. 8. GI prophylaxis. Continue patient on Protonix 40 mg orally once every day. 9. Intractable nausea due to malignancy. Continue ondansetron 8 mg orally twice every day. 10. Constipation. Start the patient on MiraLAX 17 g in 8 ounce of water once every day, also Senokot twice every day. 11. Anxiety. Started the patient on Xanax 0.25 mg orally twice every day as needed. 12. Increase activity. Objective - Vital Signs Vital signs: Vital Signs Temp 98.7 F 08/16/24 07:30 Pulse 72 08/16/24 07:51 Resp 16 08/16/24 07:30 BP 96/61 08/16/24 07:30 Pulse Ox 98 08/16/24 07:30 FiO2 Intake & Output 08/15/24 08/16/24 08/16/24 18:59 06:59 18:59 Weight 65.771 kg Other: # Voids 3 - Labs CBC & Chem 7: 08/16/24 10:41 08/16/24 10:41 Labs: Abnormal Lab Results - Last 24 Hours (Table) 08/15/24 08/15/24 Range/Units 15:26 15:26 Lymphocytes # 0.5 L (1.0-4.8) k/uL Sodium 135 L (137-145) mmol/L Glucose 147 H (74-99) mg/dL Total Protein 5.8 L (6.3-8.2) g/dL Albumin 3.0 L (3.5-5.0) g/dL
[2024-08-16] MEDS: polyethylene glycoL 3350 17 GM POWD.PACK PO SCH (13:27)
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
[2024-08-16] MEDS: methylPREDNISolone SOD SUCCI 40 MG/ML 1 ML VIAL IV SCH (16:21)
[2024-08-16] MEDS: SENNOSIDES-DOCUSATE SODIUM 1 EACH TAB PO SCH (21:34)
[2024-08-16] MEDS: guaiFENesin 600 MG TABLET.ER PO SCH (21:34)
[2024-08-16] MEDS: ALPRAZolam 0.25 MG TAB PO PRN (21:46)
[2024-08-17 08:44] LABS: ALT 18 U/L (8-44); AST 18 U/L (13-35); Albumin 3.7 g/dL (3.8-4.9); Albumin/Globulin Ratio 1.28 Ratio (1.60-3.17); Alkaline Phosphatase 65 U/L (41-126); BUN/Creat Ratio 17.57 Ratio (12.00-20.00); Blood Urea Nitrogen 12.3 mg/dL (9.0-27.0); Calcium 8.8 mg/dL (8.7-10.3); Carbon Dioxide 26.4 mmol/L (21.6-31.8); Chloride 100 mmol/L (96-109); Globulin 2.9 g/dL (1.6-3.3); Glucose 164 mg/dL (70-110); Potassium 4.8 mmol/L (3.5-5.5); Sodium 135 mmol/L (135-145); Total Bilirubin 0.3 mg/dL (0.3-1.2); Total Protein 6.6 g/dL (6.2-8.2)
[2024-08-17 09:06] LABS: Basophils # (A) 0.01 X 10*3/uL (0.00-0.10); Basophils % (A) 0.1 %; Eosinophils # (A) 0 X 10*3/uL (0.04-0.35); Eosinophils % (A) 0 %; HCT 37.8 % (37.2-46.3); HGB 12.5 g/dL (12.0-15.0); Lymphocytes % (A) 3.5 %; MCH 30.9 pg (27.0-32.0); MCHC 33.1 g/dL (32.0-37.0); MCV 93.3 FL (80.0-97.0); Mean Platelet Volume 8.8 FL (9.5-12.2); Monocytes # (A) 0.22 X 10*3/uL (0.20-1.00); Monocytes % (A) 1.9 %; NRBC Per 100 WBC 0 X 10*3/uL (0.00-0.01); Neutrophils # (A) 10.52 X 10*3/uL (1.80-7.70); Neutrophils % (A) 92.7 %; Platelet Count 221 X 10*3/uL (140-440); RBC 4.05 X 10*6/uL (4.10-5.20); RDW 12.4 % (11.5-14.5); WBC 11.35 X 10*3/uL (4.50-10.00)
[2024-08-17] MEDS: methylPREDNISolone SOD SUCCI 125 MG/2 ML VIAL IV SCH (12:35)
[2024-08-17] MEDS: bisacodyL 10 MG SUPP RECTAL STA (13:37)
--- NOTE | 2024-08-17 14:58 | P.PN ---
Subjective Progress Note Date: 08/17/24 This is a very pleasant 59-year-old female patient with a known history of non- small cell lung cancer with a G12 C mutation. She also has metastasis to the brain and has received targeted radiation treatments as recent as 2 weeks ago. She has been maintained on Krazati. Approximately 1 week ago she had developed increasing shortness of breath, chest tightness cough and congestion. She was seen in urgent care and prescribed prednisone and doxycycline. Her symptoms continue to worsen and she presented here to the emergency room yesterday. Chest X are consolidative changes. Suggestive of right perihilar pneumonia. Angiogram revealed masslike consolidations throughout the right hilar region mo st likely superimposed pneumonia involving the right upper, middle and lower lobes. There is are pending. White count 9.7. Hemoglobin 12.9. Platelets 218. Sodium 136. Potassium 4.1. Bicarb 29. BUN 9. Creatinine 0.77. Glucose 119. She is seen today in consultation on the regular medical floor. She is currently sitting up in bed. Awake and alert in no acute distress. Maintaining O2 saturations in the 90s on 2 L/min per nasal cannula. She has been initiated on ceftriaxone and azithromycin along with bronchodilators. Lovenox for DVT prophylaxis. Continued on her home Krazati. The patient is seen today August 17, 2024 in follow-up on the regular medical floor. She is currently sitting up in bed. Awake and alert in no acute distress. Still with some chest tightness on inhalation. She is maintaining good O2 saturations in the upper 90s on 2 L/min per nasal cannula. She is afebrile. Hemodynamically stable. Blood and sputum cultures are pending. White count 11.3. Hemoglobin 12.5. Platelets 221. Sodium 135. Potassium 4.8. Bicarb 26. BUN 12. Creatinine 0.7. Glucose 164. Procalcitonin negative at 0.08. DuoNeb and elations, Solu-Medrol. Remains on antibiotics in the form of ceftriaxone. Mucinex for her cough. Lovenox for DVT prophylaxis. Remains on her Krazati. Objective - Vital Signs Vital signs: Vital Signs Temp 98.6 F 08/17/24 12:02 Pulse 72 08/17/24 12:35 Resp 18 08/17/24 12:02 BP 112/69 08/17/24 12:02 Pulse Ox 97 08/17/24 12:02 FiO2 Intake & Output 08/16/24 08/17/24 08/17/24 18:59 06:59 18:59 Intake Total 1542 540 Balance 1542 540 Intake: Oral 1542 540 Other: # Voids 2 - Exam GENERAL EXAM: Alert, pleasant 59-year-old female, on 2 L nasal cannula, comfortable in no apparent distress. HEAD: Normocephalic. EYES: Normal reaction of pupils, equal size. NOSE: Clear with pink turbinates. THROAT: No erythema or exudates. NECK: No masses, no JVD. CHEST: No chest wall deformity. Port-A-Cath in place LUNGS: Equal air entry with scattered rhonchi throughout the right lung. CVS: S1 and S2 normal with no audible murmur, regular rhythm. ABDOMEN: No hepatosplenomegaly, normal bowel sounds, no guarding or rigidity. SPINE: No scoliosis or deformity SKIN: No rashes CENTRAL NERVOUS SYSTEM: No focal deficits, tone is normal in all 4 extremities. EXTREMITIES: There is no peripheral edema. No clubbing, no cyanosis. Peripheral pulses are intact. - Labs CBC & Chem 7: 08/17/24 05:26 08/17/24 05:26 Labs: Abnormal Lab Results - Last 24 Hours (Table) 08/17/24 08/17/24 Range/Units 05:26 05:26 WBC 11.35 H (4.50-10.00) X 10*3/uL RBC 4.05 L (4.10-5.20) X 10*6/uL MPV 8.8 L (9.5-12.2) FL Immature Gran # 0.20 H (0.00-0.04) X 10*3/uL Neutrophils # 10.52 H (1.80-7.70) X 10*3/uL Lymphocytes # 0.40 L (0.90-5.00) X 10*3/uL Eosinophils # 0 L (0.04-0.35) X 10*3/uL Glucose 164 H (70-110) mg/dL Albumin 3.7 L (3.8-4.9) g/dL Albumin/Globulin Ratio 1.28 L (1.60-3.17) Ratio Microbiology - Last 24 Hours (Table) 08/15/24 20:27 Gram Stain - Preliminary Sputum Sputum Culture - Preliminary 08/15/24 05:45 Blood Culture - Preliminary Blood Assessment and Plan Assessment: Acute hypoxemic respiratory failure secondary to suspected superimposed pneumonia on top of known right lung non-small cell lung cancer. 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 She had previously received chemo/radiation and immunotherapy. She is currently on Krazati. She had targeted radiation treatments to the brain as recent as 2 weeks ago. PET scan from May 2024 revealed increased size of grouped anterior right lower lung pulmonary nodules with intense radiotracer activity consistent with metastasis/recurrence. Increased size of the right lower lobe 2.7 cm consolidative opacity with mild radiotracer uptake suspicious for metastasis. Stable appearance of the right perihilar mass with FDG activity at baseline levels consistent with treated malignancy Former smoker Hypothyroidism Plan: The patient was seen and evaluated Labs and medications reviewed Procalcitonin negative Recommend discontinuing antibiotics Add Pulmicort and Perforomist inhalations Increase Solu-Medrol to 60 mg every 6 hours Titrate the FiO2 as tolerated This patient was seen independently by the pulmonary nurse practitioner addressing pulmonary issues I have personally seen and examined the patient, performed the documentation and the assessment and plan as written. Number of minutes spent on the visit: 23 Dictation was produced using [employer] dictation software. Please excuse any grammatical, word or spelling errors.
[2024-08-17] MEDS: ONDANSETRON 4 MG TAB PO PRN (18:33)
--- NOTE | 2024-08-17 18:44 | P.PN ---
Subjective Progress Note Date: 08/17/24 HISTORY OF PRESENT ILLNESS: This is a 59-year-old female with a previous medical history signif icant for mixed hyperlipidemia, hypothyroidism, history of non-small cell lung cancer of the right lung status post 31 radiation therapy followed by chemo and immunotherapy with Imfinzi in 2019 and currently on Krazati 600 mg orally twice every day has been under the care of Dr. Ernst from oncology, patient was in her usual state of health but that last week Saturday when she came down with fever an d chills associated increased cough and shortness of breath, she was diagnosed with pneumonia after she went to urgent care in [facility], she was placed on doxycycline 100 mg orally twice a day along with steroid pack, she was feeling a lot better, Saturday and Saturday she was feeling better however later on the week she started getting more short of breath more coughing no phlegm production, she felt like she was having more issues, she tried to get a hold of her oncologist that she could not she ended up coming to the ER for evaluation she was seen yesterday ended up having a chest x-ray that showed right perihilar pneumonia this was followed by a CT scan of the chest that was negative for pulmonary embolism however it did show evidence of possible pneumonia on top of right upper middle and lower right lower lobe cancer patient was started on IV antibiotic in the form of Zithromax 500 mg IV piggyback x 1 followed by Rocephin 1 g of piggyback every 24 hours, she was admitted to the hospital for further evaluation, her oxygenation was about 94% room air, currently she is on 2 L nasal cannula, she was placed on nebulized treatment in the form of DuoNeb 3 mL nebulization 4 times every day, sputum culture will be done, Legionella urine antigen antigen will be done as well mycoplasma IgG and IgM was sent, pulmonary consultation was obtained from Dr. Ellis 08/16: Patient is feeling better today, she continues to have some cough, minimal phlegm production, she continues to have some right-sided chest pain, she has no pleurisy, or hemoptysis at this time, patient did have a CT scan of the chest yesterday that was negative for pulmonary embolism, continue oxygen support, continue current treatment plan with Rocephin 1 g every back every 24 hours as well as Zithromax 500 mg orally once every day I will follow-up with the patient very closely, pulmonary consultation is in order, patient has not had a bowel movement, we will start her on Senokot twice a day as well as MiraLAX 17 g in 8 ounce of water once every day, I will also start the patient on Xanax 0.25 mg orally twice a day because she is getting more anxious about staying in the hospital. 08/17: Patient is sitting up in bed is feeling a bit better today, she continues to have some coughing, minimal from production, her cough is more productive today, she continues to use the incentive spirometer, up to 1500, she was started on Mucinex 1200 mg orally twice every day yesterday she was placed on Pulmicort by pulmonary medicine as well as by steroid, will continue current treatment plan, follow-up with the patient very closely, no plan for bronchoscopy at this point in time, patient is constipated, will start the p atient on Dulcolax suppository 10 mg x 1, she will continue with current bowel regimen, increase activity, increase fluid intake. REVIEW OF SYSTEMS: Constitutional: No documented fever, no chills, no night sweats. No weight change. No weakness, fatigue or lethargy. No daytime sleepiness. EENT: No headache. No blurred vision or double vision, no loss of vision. No loss of Hearing, no ringing in the ears, no dizziness. No nasal drainage or congestion. No epistaxis. No sore throat. Lungs: No shortness of breath, no cough, no sputum production. No wheezing. Reports dyspnea with activity. Cardiovascular: No chest pain, no lower extremity edema. No palpitations. No paroxysmal nocturnal dyspnea. No orthopnea. No lightheadedness or dizziness. No syncopal episodes. Abdominal: Reports abdominal pain. No nausea, vomiting. No diarrhea. No constipation. No bloody or tarry stools reports loss of appetite. Genitourinary: No dysuria, increased frequency, urgency. No urinary retention. Musculoskeletal: No myalgias. No muscle weakness, no gait dysfunction, no frequent falls. No back pain. No neck pain. Integumentary: No wounds, no lesions. No rash or pruritus. No unusual b ruising. No change in hair or nails. Neurologic: No aphasia. No facial droop. No change in mentation. No head injury. No headache. No paralysis. No paresthesia. Psychiatric: No depression. No anxiety. No mood swings. Endocrine: No abnormal blood sugars. No weight change. PHYSICAL EXAMINATION: General: 59-year-old female laying down in bed in minimal respiratory distress. HEENT: Head is atraumatic, normocephalic, pupils were equal round reactive to light and recommendation, extraocular muscle movement were intact, sclera nonicteric, conjunctivae were pale, mucous membranes of the mouth are somewhat dry. Neck: Supple, no JVP, normal carotid upstroke bilaterally, no lymphadenopathy. Chest: Decreased breath sounds at the bases, few rhonchi, minimal expiratory wheezes, no chest wall tenderness, no intercostal retractions. Heart: First heart sound is normal, second heart sounds normal there is no gallop or murmur no rubs or heaves. Abdomen: Soft, nontender, nondistended, positive bowel sounds. Extremities: There is no edema no calf tenderness DP +2 bilaterally. Neurologic examination: Patient is awake alert and oriented x3, cranial nerves II-12 appear grossly intact, muscle power were 5 out of 5 in upper extremities and 5 out of 5 in bilateral lower extremities, deep tendon reflexes normal bilaterally. ASSESSMENT AND PLAN: 1. Right perihilar community-acquired pneumonia in a patient with non-small cell lung cancer involving the right upper middle and lower lobe. Continue patient on oxygen 2 L nasal cannula, sputum culture, urine Legionella antigen, mycoplasma antibody IgG and IgM, start the patient on Rocephin 1 g IV piggyback every 24 hours, Zithromax 500 mg orally once every day, DuoNeb nebulization 3 mL every 6 hours [id number], follow-up with the patient very closely, pulmonary consultation appreciated, add Mucinex 1200 mg orally twice every day, continue incentive spirometer, continue Solu-Medrol 60 mg IV push every 6 hours, continue patient on Pulmicort 1 mg nebulization twice every day as well. 2. Non-small cell lung cancer of the right lung involving the right upper middle and lower lobe has been under the care of Dr. Ernst did receive radiation therapy as well as chemo immunotherapy 2021 currently on Krazati 600 mg orally twice every day. Continue with that. 3. Mixed hyperlipidemia. Continue atorvastatin 40 mg orally once every day, monitor lipid panel, keep LDL 55-70. 4. Hypothyroidism. Continue patient on Unithroid 112 mcg orally once every day. 5. Spondylosis of the lumbar spine. Continue patient on hydrocodone 10/325 mg orally 4 times every day as needed. 6. History of lone atrial fibrillation currently in sinus rhythm. 7. DVT prophylaxis. Lovenox 40 mg subcutaneously every 24 hours. 8. GI prophylaxis. Continue patient on Protonix 40 mg orally once every day. 9. Intractable nausea due to malignancy. Continue ondansetron 8 mg orally twice every day. 10. Constipation. Start the patient on MiraLAX 17 g in 8 ounce of water once every day, also Senokot twice every day. Added Dulcolax suppository 10 mg. 11. Anxiety. Started the patient on Xanax 0.25 mg orally twice every day as needed. 12. Increase activity. Objective - Vital Signs Vital signs: Vital Signs Temp 98.6 F 08/17/24 12:02 Pulse 72 08/17/24 16:58 Resp 18 08/17/24 12:02 BP 112/69 08/17/24 12:02 Pulse Ox 97 08/17/24 12:02 FiO2 Intake & Output 08/16/24 08/17/24 08/17/24 18:59 06:59 18:59 Intake Total 1542 540 Balance 1542 540 Intake: Oral 1542 540 Other: # Voids 2 2 - Labs CBC & Chem 7: 08/17/24 05:26 08/17/24 05:26 Labs: Abnormal Lab Results - Last 24 Hours (Table) 08/17/24 08/17/24 Range/Units 05:26 05:26 WBC 11.35 H (4.50-10.00) X 10*3/uL RBC 4.05 L (4.10-5.20) X 10*6/uL MPV 8.8 L (9.5-12.2) FL Immature Gran # 0.20 H (0.00-0.04) X 10*3/uL Neutrophils # 10.52 H (1.80-7.70) X 10*3/uL Lymphocytes # 0.40 L (0.90-5.00) X 10*3/uL Eosinophils # 0 L (0.04-0.35) X 10*3/uL Glucose 164 H (70-110) mg/dL Albumin 3.7 L (3.8-4.9) g/dL Albumin/Globulin Ratio 1.28 L (1.60-3.17) Ratio Microbiology - Last 24 Hours (Table) 08/15/24 20:27 Gram Stain - Preliminary Sputum Sputum Culture - Preliminary 08/15/24 05:45 Blood Culture - Preliminary Blood
[2024-08-17] MEDS: FORMOTEROL FUMARATE 20 MCG/2 ML NEBU INHALATION SCH (20:04)
[2024-08-17] MEDS: BUDESONIDE 1 MG/2 ML NEBU INHALATION SCH (20:04)
--- NOTE | 2024-08-18 12:04 | P.PN ---
Subjective Progress Note Date: 08/18/24 This is a very pleasant 59-year-old female patient with a known history of non- small cell lung cancer with a G12 C mutation. She also has metastasis to the brain and has received targeted radiation treatments as recent as 2 weeks ago. She has been maintained on Krazati. Approximately 1 week ago she had developed increasing shortness of breath, chest tightness cough and congestion. She was seen in urgent care and prescribed prednisone and doxycycline. Her symptoms continue to worsen and she presented here to the emergency room yesterday. Chest X are consolidative changes. Suggestive of right perihilar pneumonia. Angiogram revealed masslike consolidations throughout the right hilar region mo st likely superimposed pneumonia involving the right upper, middle and lower lobes. There is are pending. White count 9.7. Hemoglobin 12.9. Platelets 218. Sodium 136. Potassium 4.1. Bicarb 29. BUN 9. Creatinine 0.77. Glucose 119. She is seen today in consultation on the regular medical floor. She is currently sitting up in bed. Awake and alert in no acute distress. Maintaining O2 saturations in the 90s on 2 L/min per nasal cannula. She has been initiated on ceftriaxone and azithromycin along with bronchodilators. Lovenox for DVT prophylaxis. Continued on her home Krazati. The patient is seen today August 17, 2024 in follow-up on the regular medical floor. She is currently sitting up in bed. Awake and alert in no acute distress. Still with some chest tightness on inhalation. She is maintaining good O2 saturations in the upper 90s on 2 L/min per nasal cannula. She is afebrile. Hemodynamically stable. Blood and sputum cultures are pending. White count 11.3. Hemoglobin 12.5. Platelets 221. Sodium 135. Potassium 4.8. Bicarb 26. BUN 12. Creatinine 0.7. Glucose 164. Procalcitonin negative at 0.08. DuoNeb and elations, Solu-Medrol. Remains on antibiotics in the form of ceftriaxone. Mucinex for her cough. Lovenox for DVT prophylaxis. Remains on her Krazati. The patient is seen today August 18, 2024 in follow-up on the regular medical floor. She is sitting up in bed having breakfast. Awake and alert in no acute distress. Feeling better today compared to yesterday. Less congestion. Less chest tightness. Maintaining good O2 saturations in the 90s on room air. No IV fluids. Procalcitonin was negative. Sputum culture revealed no growth. Blood culture revealed no growth. She is currently on ceftriaxone. She remains on DuoNeb inhalations, Pulmicort and Perforomist inhalations, IV Solu-Medrol. Lovenox for DVT prophylaxis. Objective - Vital Signs Vital signs: Vital Signs Temp 97.9 F 08/18/24 07:21 Pulse 76 08/18/24 11:21 Resp 16 08/18/24 07:21 BP 99/62 08/18/24 07:21 Pulse Ox 95 08/18/24 07:21 FiO2 Intake & Output 08/17/24 08/18/24 08/18/24 18:59 06:59 18:59 Intake Total 540 Balance 540 Intake: Oral 540 Other: # Voids 2 - Exam GENERAL EXAM: Alert, pleasant 59-year-old female, sitting up in bed having breakfast, on room air, comfortable in no apparent distress. HEAD: Normocephalic. EYES: Normal reaction of pupils, equal size. NOSE: Clear with pink turbinates. THROAT: No erythema or exudates. NECK: No masses, no JVD. CHEST: No chest wall deformity. Port-A-Cath in place LUNGS: Equal air entry with scattered rhonchi throughout the right lung. CVS: S1 and S2 normal with no audible murmur, regular rhythm. ABDOMEN: No hepatosplenomegaly, normal bowel sounds, no guarding or rigidity. SPINE: No scoliosis or deformity SKIN: No rashes CENTRAL NERVOUS SYSTEM: No focal deficits, tone is normal in all 4 extremities. EXTREMITIES: There is no peripheral edema. No clubbing, no cyanosis. Peripheral pulses are intact. - Labs CBC & Chem 7: 08/17/24 05:26 08/17/24 05:26 Labs: Microbiology - Last 24 Hours (Table) 08/15/24 20:27 Gram Stain - Final Sputum Sputum Culture - Final 08/15/24 05:45 Blood Culture - Preliminary Blood Assessment and Plan Assessment: Acute hypoxemic respiratory failure secondary to suspected pneumonitis on top of known right lung non-small cell lung cancer. Failed outpatient treatment of doxycycline and steroids. Procalcitonin is negative. 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 She had previously received chemo/radiation and immunotherapy. She is currently on Krazati. She had targeted radiation treatments to the brain as recent as 2 weeks ago. PET scan from May 2024 revealed increased size of grouped anterior right lower lung pulmonary nodules with intense radiotracer activity consistent with metastasis/recurrence. Increased size of the right lower lobe 2.7 cm consolidative opacity with mild radiotracer uptake suspicious for metastasis. Stable appearance of the right perihilar mass with FDG activity at baseline levels consistent with treated malignancy Former smoker Hypothyroidism Plan: The patient was seen and evaluated Medications reviewed Continued on DuoNeb inhalations Continued on Pulmicort and Perforomist inhalations Continued on IV Solu-Medrol Stable and on room air Improved today compared to yesterday Suspect pneumonitis, possible Krazati reaction Procalcitonin negative This patient was seen independently by the pulmonary nurse practitioner addressing pulmonary issues I have personally seen and examined the patient, performed the documentation and the assessment and plan as written. Number of minutes spent on the visit: 24 Dictation was produced using [employer] dictation software. Please excuse any grammatical, word or spelling errors.
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
--- NOTE | 2024-08-18 16:25 | P.PN ---
Subjective Progress Note Date: 08/18/24 No acute events. Reporting significant improvement in symptoms today. Continues rocephin, bronchodilators, and solumedrol [id number]. Remains afebrile SPO2 95% on room air. Sputum culture negative Objective - Vital Signs Vital signs: Vital Signs Temp 97.9 F 08/18/24 07:21 Pulse 76 08/18/24 11:21 Resp 16 08/18/24 07:21 BP 99/62 08/18/24 07:21 Pulse Ox 95 08/18/24 07:21 FiO2 Intake & Output 08/17/24 08/18/24 08/18/24 18:59 06:59 18:59 Intake Total 540 Balance 540 Intake: Oral 540 Other: # Voids 2 - Constitutional General appearance: Present: average body habitus, no acute distress - EENT Eyes: Present: anicteric sclerae ENT: Present: hearing grossly normal - Respiratory Details: breathing is even and unlabored - Cardiovascular Details: well perfused - Integumentary Integumentary: Absent: cyanotic, jaundiced - Musculoskeletal Musculoskeletal: Present: strength equal bilaterally - Psychiatric Psychiatric: Present: A&O x's 3 - Labs CBC & Chem 7: 08/17/24 05:26 08/17/24 05:26 Labs: Microbiology - Last 24 Hours (Table) 08/15/24 20:27 Gram Stain - Final Sputum Sputum Culture - Final 08/15/24 05:45 Blood Culture - Preliminary Blood Assessment and Plan (1) Adenocarcinoma, lung Current Visit: Yes Status: Acute Priority: High Code(s): C34.90 - MALIGNANT NEOPLASM OF UNSP PART OF UNSP BRONCHUS OR LUNG SNOMED Code(s): 946413306 (2) Pneumonia Current Visit: Yes Status: Acute Priority: High Code(s): J18.9 - PNEUMONIA, UNSPECIFIED ORGANISM SNOMED Code(s): 559738029 Plan: SOB, Pneumonia: Presented to the emergency room with complaints of chest tightness and shortness of breath. Went to urgent care 1 week ago and was started on doxycycline and steroids for concern for pneumonia. She reports she began to feel better but over the last couple days prior to admission symptoms began to worsen, experiencing chest tightness, neck tightness, and SOB -Chest x-ray showed right perihilar consolidative change. Subsequent CTA chest negative for PE. Masslike consolidation throughout the right hilar region with likely superimposed pneumonia involving the right upper middle and lower lobes. -IV antibiotics and steroids started for suspected pneumonia -Tmax 100.8, fever now resolved. Blood culture negative. Sputum culture negative -Reporting significant improvement in symptoms. Continues Rocephin, bronchodilators, and solumedrol 60mg q6hr -Pulmonology following -Although an uncommon side effect, Krazati does have possible side effect of pneumonitis. However, clinical picture/imaging is more likely consistent with pneumonia. Agree with current management. Will continue to follow course of hospitalization Lung adenocarcinoma: -Oncology history as dictated in the HPI -Started KRAS G12C inhibitor, Krazati, on 07/06/2024 and has been tolerating treatment well -Hold Krazati until acute symptoms resolve -Will plan for patient to be on short steroid taper upon d/c, and clinic f/u in 2 weeks prior to restarting treatment Case and plan was reviewed and discussed with her primary oncologist, Dr. Ernst
--- NOTE | 2024-08-18 19:49 | P.PN ---
Subjective Progress Note Date: 08/18/24 HISTORY OF PRESENT ILLNESS: This is a 59-year-old female with a previous medical history signif icant for mixed hyperlipidemia, hypothyroidism, history of non-small cell lung cancer of the right lung status post 31 radiation therapy followed by chemo and immunotherapy with Imfinzi in 2019 and currently on Krazati 600 mg orally twice every day has been under the care of Dr. Ernst from oncology, patient was in her usual state of health but that last week Saturday when she came down with fever an d chills associated increased cough and shortness of breath, she was diagnosed with pneumonia after she went to urgent care in [facility], she was placed on doxycycline 100 mg orally twice a day along with steroid pack, she was feeling a lot better, Saturday and Saturday she was feeling better however later on the week she started getting more short of breath more coughing no phlegm production, she felt like she was having more issues, she tried to get a hold of her oncologist that she could not she ended up coming to the ER for evaluation she was seen yesterday ended up having a chest x-ray that showed right perihilar pneumonia this was followed by a CT scan of the chest that was negative for pulmonary embolism however it did show evidence of possible pneumonia on top of right upper middle and lower right lower lobe cancer patient was started on IV antibiotic in the form of Zithromax 500 mg IV piggyback x 1 followed by Rocephin 1 g of piggyback every 24 hours, she was admitted to the hospital for further evaluation, her oxygenation was about 94% room air, currently she is on 2 L nasal cannula, she was placed on nebulized treatment in the form of DuoNeb 3 mL nebulization 4 times every day, sputum culture will be done, Legionella urine antigen antigen will be done as well mycoplasma IgG and IgM was sent, pulmonary consultation was obtained from Dr. Ellis 08/16: Patient is feeling better today, she continues to have some cough, minimal phlegm production, she continues to have some right-sided chest pain, she has no pleurisy, or hemoptysis at this time, patient did have a CT scan of the chest yesterday that was negative for pulmonary embolism, continue oxygen support, continue current treatment plan with Rocephin 1 g every back every 24 hours as well as Zithromax 500 mg orally once every day I will follow-up with the patient very closely, pulmonary consultation is in order, patient has not had a bowel movement, we will start her on Senokot twice a day as well as MiraLAX 17 g in 8 ounce of water once every day, I will also start the patient on Xanax 0.25 mg orally twice a day because she is getting more anxious about staying in the hospital. 08/17: Patient is sitting up in bed is feeling a bit better today, she continues to have some coughing, minimal from production, her cough is more productive today, she continues to use the incentive spirometer, up to 1500, she was started on Mucinex 1200 mg orally twice every day yesterday she was placed on Pulmicort by pulmonary medicine as well as by steroid, will continue current treatment plan, follow-up with the patient very closely, no plan for bronchoscopy at this point in time, patient is constipated, will start the p atient on Dulcolax suppository 10 mg x 1, she will continue with current bowel regimen, increase activity, increase fluid intake. 08/18: Patient is doing much better today since she was started on Solu-Medrol 60 mg IV push every 6 hours, she continues to be on Pulmicort 1 mg nebulization twice every day as well, we will follow-up with the patient very closely, continue patient on IV antibiotic in the form of Rocephin as well as Zithromax, will continue with current bowel care, patient also has been using incentive spirometer, she continues to increase her activity, she appears to be quite anx ious today she is since she was started on steroid, she has been on Xanax 0.25 mg twice every day as needed as well. She is still somewhat constipated, she was offered magnesium citrate but she declined. REVIEW OF SYSTEMS: Constitutional: No documented fever, no chills, no night sweats. No weight change. No weakness, fatigue or lethargy. No daytime sleepiness. EENT: No headache. No blurred vision or double vision, no loss of vision. No loss of Hearing, no ringing in the ears, no dizziness. No nasal drainage or congestion. No epistaxis. No sore throat. Lungs: No shortness of breath, no cough, no sputum production. No wheezing. Reports dyspnea with activity. Cardiovascular: No chest pain, no lower extremity edema. No palpitations. No paroxysmal nocturnal dyspnea. No orthopnea. No lightheadedness or dizziness. No syncopal episodes. Abdominal: Reports abdominal pain. No nausea, vomiting. No diarrhea. No constipation. No bloody or tarry stools reports loss of appetite. Genitourinary: No dysuria, increased frequency, urgency. No urinary retention. Musculoskeletal: No myalgias. No muscle weakness, no gait dysfunction, no frequent falls. No back pain. No neck pain. Integumentary: No wounds, no lesions. No rash or pruritus. No unusual bruising. No change in hair or nails. Neurologic: No aphasia. No facial droop. No change in mentation. No head injury. No headache. No paralysis. No paresthesia. Psychiatric: No depression. No anxiety. No mood swings. Endocrine: No abnormal blood sugars. No weight change. PHYSICAL EXAMINATION: General: 59-year-old female laying down in bed in minimal respiratory distress. HEENT: Head is atraumatic, normocephalic, pupils were equal round reactive to light and recommendation, extraocular muscle movement were intact, sclera nonicteric, conjunctivae were pale, mucous membranes of the mouth are somewhat d ry. Neck: Supple, no JVP, normal carotid upstroke bilaterally, no lymphadenopathy. Chest: Decreased breath sounds at the bases, few rhonchi, minimal expiratory wheezes, no chest wall tenderness, no intercostal retractions. Heart: First heart sound is normal, second heart sounds normal there is no ga llop or murmur no rubs or heaves. Abdomen: Soft, nontender, nondistended, positive bowel sounds. Extremities: There is no edema no calf tenderness DP +2 bilaterally. Neurologic examination: Patient is awake alert and oriented x3, cranial nerves II-12 appear grossly intact, muscle power were 5 out of 5 in upper extremities and 5 out of 5 in bilateral lower extremities, deep tendon reflexes normal b ilaterally. ASSESSMENT AND PLAN: 1. Right perihilar community-acquired pneumonia in a patient with non-small cell lung cancer involving the right upper middle and lower lobe. Continue patient on oxygen 2 L nasal cannula, sputum culture, urine Legionella antigen, mycoplasma antibody IgG and IgM, start the patient on Rocephin 1 g IV piggyback every 24 hours, Zithromax 500 mg orally once every day, DuoNeb nebulization 3 mL every 6 hours [id number], follow-up with the patient very closely, pulmonary consultation appreciated, add Mucinex 1200 mg orally twice every day, continue incentive spirometer, continue Solu-Medrol 60 mg IV push every 6 hours, continue patient on Pulmicort 1 mg nebulization twice every day as well. 2. Non-small cell lung cancer of the right lung involving the right upper middle and lower lobe has been under the care of Dr. Ernst did receive radiation therapy as well as chemo immunotherapy 2021 currently on Krazati 600 mg orally twice every day. Continue with that. 3. Mixed hyperlipidemia. Continue atorvastatin 40 mg orally once every day, monitor lipid panel, keep LDL 55-70. 4. Hypothyroidism. Continue patient on Unithroid 112 mcg orally once every day. 5. Spondylosis of the lumbar spine. Continue patient on hydrocodone 10/325 mg orally 4 times every day as needed. 6. History of lone atrial fibrillation currently in sinus rhythm. 7. DVT prophylaxis. Lovenox 40 mg subcutaneously every 24 hours. 8. GI prophylaxis. Continue patient on Protonix 40 mg orally once every day. 9. Intractable nausea due to malignancy. Continue ondansetron 8 mg orally twice every day. 10. Constipation. Start the patient on MiraLAX 17 g in 8 ounce of water once every day, also Senokot twice every day. Added Dulcolax suppository 10 mg. 11. Anxiety. Started the patient on Xanax 0.25 mg orally twice every day as needed. 12. Increase activity. Objective - Vital Signs Vital signs: Vital Signs Temp 97.5 F L 08/18/24 18:58 Pulse 78 08/18/24 18:58 Resp 17 08/18/24 18:58 BP 102/62 08/18/24 18:58 Pulse Ox 95 08/18/24 18:58 FiO2 Intake & Output 08/18/24 08/18/24 08/19/24 06:59 18:59 06:59 Intake Total 540 1320 Balance 540 1320 Intake: Oral 540 1320 Other: # Voids 2 - Labs CBC & Chem 7: 08/17/24 05:26 08/17/24 05:26 Labs: Microbiology - Last 24 Hours (Table) 08/15/24 05:45 Blood Culture - Preliminary Blood 08/15/24 20:27 Gram Stain - Final Sputum Sputum Culture - Final
[2024-08-19 05:56] LABS: Mycoplasma IgG Antibody (EIA) 2.63 INDEX (<=0.90); Mycoplasma IgM Antibody 1.21 INDEX (<=0.90)
[2024-08-19] MEDS: predniSONE 10 MG TAB PO SCH (08:50)
[2024-08-19 12:25] VITALS: BP 114/69; PULSE 73; RESP 16; TEMP 97.9
--- NOTE | 2024-08-19 13:32 | P.DS ---
Providers Date of admission: 08/15/24 15:03 Expected date of discharge: 08/19/24 Attending physician: Rody Melton Consults: 08/15/24 15:04 Consult Physician Routine Consulting Provider: Norah Ellis Consult Reason/Comments: Pneumonia/Lung cancer Do you want consulting provider notified?: Yes 08/17/24 14:35 Consult Physician Routine Consulting Provider: Ramsey Padron Consult Reason/Comments: Lung cancer Do you want consulting provider notified?: Already Contacted Primary care physician: Rody Melton Hospital Course: HISTORY OF PRESENT ILLNESS: This is a 59-year-old female with a previous medical history significant for mixed hyperlipidemia, hypothyroidism, history of non-small cell lung cancer of the right lung status post 31 radiation therapy followed by chemo and immunotherapy with Imfinzi in 2019 and currently on Krazati 600 mg orally twice every day has been under the care of Dr. Ernst from oncology, patient was in her usual state of health but that last week Saturday when she came down with fever and chills associated increased cough and shortness of breath, she was diagnosed with pneumonia after she went to urgent care in [facility], she was placed on doxycycline 100 mg orally twice a day along with steroid pack, she was feeling a lot better, Saturday and Saturday she was feeling better however later on the week she started getting more short of breath more coughing no phlegm production, she felt like she was having more issues, she tried to get a hold of her oncologist that she could not she ended up coming to the ER for evaluation she was seen yesterday ended up having a chest x-ray that showed right perihilar pneumonia this was followed by a CT scan of the chest that was negative for pulmonary embolism however it did show evidence of possible pneumonia on top of right upper middle and lower right lower lobe cancer patient was started on IV antibiotic in the form of Zithromax 500 mg IV piggyback x 1 followed by Rocephin 1 g of piggyback every 24 hours, she was admitted to the hospital for further evaluation, her oxygenation was about 94% room air, currently she is on 2 L nasal cannula, she was placed on nebulized treatment in the form of DuoNeb 3 mL nebulization 4 times every day, sputum culture will be done, Legionella urine antigen antigen will be done as well mycoplasma IgG and IgM was sent, pulmonary consultation was obtained from Dr. Ellis 08/16: Patient is feeling better today, she continues to have some cough, minimal phlegm production, she continues to have some right-sided chest pain, she has no pleurisy, or hemoptysis at this time, patient did have a CT scan of the chest yesterday that was negative for pulmonary embolism, continue oxygen support, continue current treatment plan with Rocephin 1 g every back every 24 hours as well as Zithromax 500 mg orally once every day I will follow-up with the patient very closely, pulmonary consultation is in order, patient has not had a bowel movement, we will start her on Senokot twice a day as well as MiraLAX 17 g in 8 ounce of water once every day, I will also start the patient on Xanax 0.25 mg orally twice a day because she is getting more anxious about staying in the hospital. 08/17: Patient is sitting up in bed is feeling a bit better today, she continues to have some coughing, minimal from production, her cough is more productive today, she continues to use the incentive spirometer, up to 1500, she was started on Mucinex 1200 mg orally twice every day yesterday she was placed on Pulmicort by pulmonary medicine as well as by steroid, will continue current treatment plan, follow-up with the patient very closely, no plan for bronchoscopy at this point in time, patient is constipated, will start the patient on Dulcolax suppository 10 mg x 1, she will continue with current bowel regimen, increase activity, increase fluid intake. 08/18: Patient is doing much better today since she was started on Solu-Medrol 60 mg IV push every 6 hours, she continues to be on Pulmicort 1 mg nebulization twice every day as well, we will follow-up with the patient very closely, continue patient on IV antibiotic in the form of Rocephin as well as Zithromax, will continue with current bowel care, patient also has been using incentive spirometer, she continues to increase her activity, she appears to be quite anxious today she is since she was started on steroid, she has been on Xanax 0.25 mg twice every day as needed as well. She is still somewhat constipated, she was offered magnesium citrate but she declined. 08/19: Patient is sitting up in bed in no apparent distress, she is female better today, she denies any chest pain, shortness of breath, she has less coughing, she was taken off her treatment by oncology, and she will stay off of it for the next week until she will follow-up with them as an outpatient, we will switch the patient to oral prednisone with a taper over the next Few days and we will keep her on Zithromax 500 mg once every day for the next 3 days, follow-up with me as an outpatient next week. Follow-up with oncology as well as by pulm medicine in 1 or 2 weeks from now. Discharge diagnoses: 1. Right perihilar community-acquired pneumonia in a patient with non-small cell lung cancer involving the right upper middle and lower lobe. 2. Non-small cell lung cancer of the right lung involving the right upper middle and lower lobe has been under the care of Dr. Ernst did receive radiation therapy as well as chemo immunotherapy 2021 currently on Krazati 600 mg orally twice every day. 3. Mixed hyperlipidemia. 4. Hypothyroidism. 5. Spondylosis of the lumbar spine. 6. History of lone atrial fibrillation currently in sinus rhythm. 7. Intractable nausea due to malignancy. 8. Constipation. 9. Anxiety. Patient Condition at Discharge: Stable Plan - Discharge Summary Discharge Rx Participant: Yes New Discharge Prescriptions: No Action HYDROcodone/APAP 10-325MG [[place] 10-325] 1 tab PO QID ondansetron HCL [Zofran] 8 mg PO BID PRN PRN Reason: Nausea And Vomiting Albuterol Sulfate [Albuterol Sulfate Hfa] 2 puff PO RT-Q6H PRN PRN Reason: Shortness Of Breath ondansetron HCL [Zofran] 8 mg PO DAILY Adagrasib [Krazati] 600 mg PO BID Levothyroxine Sodium [Unithroid] 112 mcg PO DAILY Discharge Medication List HYDROcodone/APAP 10-325MG [[place] 10-325] 1 tab PO QID 07/04/16 [History] Adagrasib [Krazati] 600 mg PO BID 08/15/24 [History] Albuterol Sulfate [Albuterol Sulfate Hfa] 2 puff PO RT-Q6H PRN 08/15/24 [History] Levothyroxine Sodium [Unithroid] 112 mcg PO DAILY 08/15/24 [History] ondansetron HCL [Zofran] 8 mg PO BID PRN 08/15/24 [History] ondansetron HCL [Zofran] 8 mg PO DAILY 08/15/24 [History] Follow up Appointment(s)/Referral(s): Rody Melton MD [Primary Care Provider] - 1-2 days Johny Dia MD [STAFF PHYSICIAN] - 1 Week
--- NOTE | 2024-08-19 14:25 | P.PN ---
Subjective Progress Note Date: 08/19/24 This is a very pleasant 59-year-old female patient with a known history of non- small cell lung cancer with a G12 C mutation. She also has metastasis to the brain and has received targeted radiation treatments as recent as 2 weeks ago. She has been maintained on Krazati. Approximately 1 week ago she had developed increasing shortness of breath, chest tightness cough and congestion. She was seen in urgent care and prescribed prednisone and doxycycline. Her symptoms continue to worsen and she presented here to the emergency room yesterday. Chest X are consolidative changes. Suggestive of right perihilar pneumonia. Angiogram revealed masslike consolidations throughout the right hilar region mo st likely superimposed pneumonia involving the right upper, middle and lower lobes. There is are pending. White count 9.7. Hemoglobin 12.9. Platelets 218. Sodium 136. Potassium 4.1. Bicarb 29. BUN 9. Creatinine 0.77. Glucose 119. She is seen today in consultation on the regular medical floor. She is currently sitting up in bed. Awake and alert in no acute distress. Maintaining O2 saturations in the 90s on 2 L/min per nasal cannula. She has been initiated on ceftriaxone and azithromycin along with bronchodilators. Lovenox for DVT prophylaxis. Continued on her home Krazati. The patient is seen today August 17, 2024 in follow-up on the regular medical floor. She is currently sitting up in bed. Awake and alert in no acute distress. Still with some chest tightness on inhalation. She is maintaining good O2 saturations in the upper 90s on 2 L/min per nasal cannula. She is afebrile. Hemodynamically stable. Blood and sputum cultures are pending. White count 11.3. Hemoglobin 12.5. Platelets 221. Sodium 135. Potassium 4.8. Bicarb 26. BUN 12. Creatinine 0.7. Glucose 164. Procalcitonin negative at 0.08. DuoNeb and elations, Solu-Medrol. Remains on antibiotics in the form of ceftriaxone. Mucinex for her cough. Lovenox for DVT prophylaxis. Remains on her Krazati. The patient is seen today August 18, 2024 in follow-up on the regular medical floor. She is sitting up in bed having breakfast. Awake and alert in no acute distress. Feeling better today compared to yesterday. Less congestion. Less chest tightness. Maintaining good O2 saturations in the 90s on room air. No IV fluids. Procalcitonin was negative. Sputum culture revealed no growth. Blood culture revealed no growth. She is currently on ceftriaxone. She remains on DuoNeb inhalations, Pulmicort and Perforomist inhalations, IV Solu-Medrol. Lovenox for DVT prophylaxis. The patient is seen today August 19, 2024 in follow-up on the regular medical floor. She is awake and alert in no acute distress. Resting comfortably in bed. Denies any worsening shortness of breath, cough or congestion. No chest tightness. Feeling back to her baseline. She is continued on DuoNeb inhalations, Symbicort, Solu-Medrol. Remains on Lovenox for DVT prophylaxis. Mucinex for congestion. Culture revealed no growth. Blood culture revealed no growth. Procalcitonin was negative. Objective - Vital Signs Vital signs: Vital Signs Temp 97.9 F 08/19/24 12:11 Pulse 73 08/19/24 12:11 Resp 16 08/19/24 12:11 BP 114/69 08/19/24 12:11 Pulse Ox 94 L 08/19/24 12:11 FiO2 Intake & Output 08/18/24 08/19/24 08/19/24 18:59 06:59 18:59 Intake Total 1320 Balance 1320 Intake: Oral 1320 Other: # Voids 2 1 - Exam GENERAL EXAM: Alert, pleasant 59-year-old female, resting in bed, on room air, in no apparent distress. HEAD: Normocephalic. EYES: Normal reaction of pupils, equal size. NOSE: Clear with pink turbinates. THROAT: No erythema or exudates. NECK: No masses, no JVD. CHEST: No chest wall deformity. Port-A-Cath in place LUNGS: Equal air entry with few scattered rhonchi throughout the right lung. CVS: S1 and S2 normal with no audible murmur, regular rhythm. ABDOMEN: No hepatosplenomegaly, normal bowel sounds, no guarding or rigidity. SPINE: No scoliosis or deformity SKIN: No rashes CENTRAL NERVOUS SYSTEM: No focal deficits, tone is normal in all 4 extremities. EXTREMITIES: There is no peripheral edema. No clubbing, no cyanosis. Peripheral pulses are intact. - Labs CBC & Chem 7: 08/17/24 05:26 08/17/24 05:26 Labs: Abnormal Lab Results - Last 24 Hours (Table) 08/15/24 Range/Units 15:26 Mycoplasma pneumon IgG 2.63 H (<=0.90) INDEX Mycoplasma pneumon IgM 1.21 H (<=0.90) INDEX Microbiology - Last 24 Hours (Table) 08/15/24 05:45 Blood Culture - Preliminary Blood Assessment and Plan Assessment: Acute hypoxemic respiratory failure secondary to suspected pneumonitis on top of known right lung non-small cell lung cancer. Failed outpatient treatment of doxycycline and steroids. Procalcitonin is negative. 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 She had previously received chemo/radiation and immunotherapy. She is currently on Krazati. She had targeted radiation treatments to the brain as recent as 2 weeks ago. PET scan from May 2024 revealed increased size of grouped anterior right lower lung pulmonary nodules with intense radiotracer activity consistent with metastasis/recurrence. Increased size of the right lower lobe 2.7 cm consolidative opacity with mild radiotracer uptake suspicious for metastasis. Stable appearance of the right perihilar mass with FDG activity at baseline levels consistent with treated malignancy Former smoker Hypothyroidism Plan: The patient was seen and evaluated Medications reviewed Stable and on room air Feeling back to her baseline Cleared for discharge Follow-up in our office in 1 week This patient was seen independently by the pulmonary nurse practitioner addressing pulmonary issues I have personally seen and examined the patient, performed the documentation and the assessment and plan as written. Number of minutes spent on the visit: 23 Dictation was produced using [employer] dictation software. Please excuse any grammatical, word or spelling errors.
--- NOTE | 2024-08-19 15:07 | P.PN ---
Subjective Progress Note Date: 08/19/24 No acute events. Reporting significant improvement in symptoms. Continues rocephin. Solumedrol transitioned to oral steroids. Remains afebrile. Plan for discharge today Objective - Vital Signs Vital signs: Vital Signs Temp 97.9 F 08/19/24 12:11 Pulse 73 08/19/24 12:11 Resp 16 08/19/24 12:11 BP 114/69 08/19/24 12:11 Pulse Ox 94 L 08/19/24 12:11 FiO2 Intake & Output 08/18/24 08/19/24 08/19/24 18:59 06:59 18:59 Intake Total 1320 Balance 1320 Intake: Oral 1320 Other: # Voids 2 1 - Constitutional General appearance: Present: average body habitus, no acute distress - EENT Eyes: Present: anicteric sclerae, EOMI ENT: Present: hearing grossly normal - Respiratory Respiratory: bilateral: CTA - Cardiovascular Rhythm: regular - Integumentary Integumentary: Absent: cyanotic - Psychiatric Psychiatric: Present: A&O x's 3 - Labs CBC & Chem 7: 08/17/24 05:26 08/17/24 05:26 Labs: Abnormal Lab Results - Last 24 Hours (Table) 08/15/24 Range/Units 15:26 Mycoplasma pneumon IgG 2.63 H (<=0.90) INDEX Mycoplasma pneumon IgM 1.21 H (<=0.90) INDEX Microbiology - Last 24 Hours (Table) 08/15/24 05:45 Blood Culture - Preliminary Blood 08/15/24 20:27 Gram Stain - Final Sputum Sputum Culture - Final Assessment and Plan (1) Adenocarcinoma, lung Current Visit: Yes Status: Acute Priority: High Code(s): C34.90 - MALIGNANT NEOPLASM OF UNSP PART OF UNSP BRONCHUS OR LUNG SNOMED Code(s): 496758043 (2) Pneumonia Current Visit: Yes Status: Acute Priority: High Code(s): J18.9 - PNEUMONIA, UNSPECIFIED ORGANISM SNOMED Code(s): 731300051 Plan: SOB, Pneumonia: Presented to the emergency room with complaints of chest tightness and shortness of breath. Went to urgent care 1 week ago and was started on doxycycline and steroids for concern for pneumonia. She reports she began to feel better but over the last couple days prior to admission symptoms began to worsen, experiencing chest tightness, neck tightness, and SOB -Chest x-ray showed right perihilar consolidative change. Subsequent CTA chest negative for PE. Masslike consolidation throughout the right hilar region with likely superimposed pneumonia involving the right upper middle and lower lobes. -IV antibiotics and steroids started for suspected pneumonia -Tmax 100.8, fever now resolved. Blood culture negative. Sputum culture negative -Reporting significant improvement in symptoms. Continues Rocephin. Transitioned to oral steroids today. -Pulmonology following -Although an uncommon side effect, Krazati does have possible side effect of pneumonitis. However, clinical picture/imaging is more likely consistent with pneumonia. Agree with current management. Lung adenocarcinoma: -Oncology history as dictated in the HPI -Started KRAS G12C inhibitor, Krazati, on 07/06/2024 and has been tolerating treatment well -Hold Krazati until acute symptoms resolve -Will plan for patient to be on short steroid taper upon d/c, and clinic f/u in 1-2 weeks prior to restarting treatment Case and plan was reviewed and discussed with her primary oncologist, Dr. Ernst. Pt updated on POC and all questions and concerns were addressed
[2024-08-19] MEDS ORDERED: SYMBICORT 160-4.5 MCG INHALER INHALATION SCH (20:00)
== END 2024-08-19 15:20 | disposition home or self-care (01) | DRG 193 ==
LOC: EC 23:46 → 5NMEDONC 08-15 15:03
PROVIDERS: ADMIT Internal Medicine; ATTEND Internal Medicine
DX: J18.9 Pneumonia, unspecified organism (principal); J96.01 Acute respiratory failure with hypoxia; C34.91 Malignant neoplasm of unspecified part of right bronchus or lung; C79.31 Secondary malignant neoplasm of brain; J44.0 Chronic obstructive pulmonary disease with (acute) lower respiratory infection; E78.2 Mixed hyperlipidemia; E03.9 Hypothyroidism, unspecified; M47.816 Spondylosis without myelopathy or radiculopathy, lumbar region; R11.0 Nausea; I48.91 Unspecified atrial fibrillation; K59.00 Constipation, unspecified; F41.9 Anxiety disorder, unspecified; T45.1X5A Adverse effect of antineoplastic and immunosuppressive drugs, initial encounter; F17.200 Nicotine dependence, unspecified, uncomplicated; R11.2 Nausea with vomiting, unspecified; Z96.643 Presence of artificial hip joint, bilateral; Z98.82 Breast implant status; Z79.890 Hormone replacement therapy; Z88.2 Allergy status to sulfonamides; Z90.711 Acquired absence of uterus with remaining cervical stump
CPT/HCPCS: 36415; 71046; 71275; 80053; 83605; 83735; 84145; 84484; 85025; 85610; 85730; 86738; 87040; 87070; 87205; 87449; 93005; 94640; 96365; 96366; 96375; 99285

== ENCOUNTER → 2024-09-08 | Outpatient (CLI) | payer MEDICARE, OTHER ==
[2024-09-08 12:34] LABS: African American GFR (CKD) >90 (>60 ml/min/1.73 sqM); Blood Urea Nitrogen 9 mg/dL (7-17); Non-African American GFR(CKD) >90 (>60 ml/min/1.73 sqM)
--- NOTE | 2024-09-08 14:44 | CT ---
EXAMINATION TYPE: CT ChestAbdPelvis w con DATE OF EXAM: 09/08/2024 2:29 PM COMPARISON: 06/04/2024. CLINICAL INDICATION: Female, 59 years old with history of C34.2 LUNG CANCER; PHH, lung CA Technique: CT ChestAbdPelvis w con; Multiple axial images were obtained. Two-dimensional coronal and sagittal reconstructions were obtained. Contrast used:100 mL of Isovue 300 with IV Contrast, (None if empty) Oral contrast used: with Oral Contrast CT DLP: 660.2 mGycm, Automated exposure control for dose reduction was used. Findings: CHEST: LUNGS/ PLEURA: Right perihilar consolidation changes which were not FDG avid on prior PET/CT on 2023. Consolidation changes in the right lung base at that time have improved with decrease in size o f nodular densities. Small nodular densities remain enlarged measuring up to 6 mm series 9 image 21. No focal consolidation, pneumothorax or pleural effusion. AIRWAY: Patent and unremarkable. HEART: Size within normal limits. MEDIASTINUM: No gross evidence of adenopathy. VASCULATURE: No aortic aneurysm. Chest wall [id number] with tip terminating in the superior vena cava. MUSCULOSKELETAL: No acute osseous abnormalities. SOFT TISSUES/LYMPH NODES: Right breast implant has ruptured. Left implant appears intact. Findings si milar to prior. LOWER NECK: No significant findings. ABDOMEN: ABDOMEN LIVER: Caudate lobe simple appearing cyst. GALLBLADDER AND BILE DUCTS: Unremarkable. PANCREAS: Unremarkable. SPLEEN: Unremarkable. ADRENAL GLANDS: Unremarkable. KIDNEYS AND URETERS: No evidence of hydronephrosis or renal calculus. The ureters are unremarkable. PELVIS BLADDER: Unremarkable REPRODUCTIVE: Unremarkable. ABDOMEN & PELVIS STOMACH AND BOWEL: Large amount stool throughout the colon. Scattered No evidence of bowel obstructio n. PERITONEUM/RETROPERITONEUM: No evidence of pneumoperitoneum or free fluid. VASCULATURE: No evidence of aortic aneurysm. MUSCULOSKELETAL: No acute osseous abnormalities LYMPH NODES: No gross evidence for lymphadenopathy. SOFT TISSUE/ABDOMINAL WALL: Unremarkable IMPRESSION: 1. Decrease in size of nodular densities in the right lower lobe. Now there is some streaky atelecta sis in this region as well as a couple small nodules, the largest measuring up to 6 mm. Continued tommy veillance recommended. 2. Similar Right breast implant has ruptured. Left implant appears intact. [facility], , 09/08/2024 2:42 PM
== END | disposition home or self-care (01) ==
LOC: RADCTMAIN 11:42
PROVIDERS: ATTEND Internal Medicine Hematology & Oncology
DX: C34.2 Malignant neoplasm of middle lobe, bronchus or lung (principal); T85.49XA Other mechanical complication of breast prosthesis and implant, initial encounter; J98.4 Other disorders of lung; J98.11 Atelectasis
CPT/HCPCS: 82565; 84520; 71260; 74177; 36415; Q9967

== ENCOUNTER → 2024-09-25 | Outpatient (CLI) | payer MEDICARE, OTHER ==
--- NOTE | 2024-09-25 11:14 | MR ---
EXAMINATION TYPE: MR brain wo/w con DATE OF EXAM: 09/25/2024 10:53 AM COMPARISON: None. CLINICAL INDICATION: Female, 59 years old with history of C79.31 MALIGNANT NEOPLASM OF BRAIN; PHH, Ledy ng cancer with brain mets, F/U post radiation tx. TECHNIQUE: Multi planar, multi sequence imaging was performed through the brain including: T1, T2, In version recovery, susceptibility weighted imaging and gradient echo imaging and Diffusion weighted im aging. The patient was then given intravenous contrast and multi planar, T1 fat-saturation images wer e obtained. IV Contrast: 7 mL Gadobutrol FINDINGS: Left cerebellar hemisphere focus of enhancement seen on prior medially now demonstrates thi n linear area of enhancement in its place measuring 2 x 1 mm previously measuring up to 6 mm. The rig ht posterior frontal lobe lesion has decreased in size now measuring 2 mm previously 5 mm. There is f oci of blooming artifact in both of these lesions. Scattered white matter changes are also present. The bone marrow signal is within normal limits. Paranasal sinuses and mastoid air cells: No significant paranasal sinus disease. Visualized orbits: Orbital contents are intact. IMPRESSION: 1. Positive response to therapy with thin linear enhancement in the left cerebellar hemisphere. The r ight posterior frontal lobe lesion has decreased in size now measuring 2 mm. 2. Nonspecific white matter changes, likely related to small vessel ischemic disease. [facility], , 09/25/2024 11:12 AM
== END | disposition home or self-care (01) ==
LOC: RADMRIMAIN 09:50
PROVIDERS: ATTEND Radiology Radiation Oncology
DX: C79.31 Secondary malignant neoplasm of brain (principal); C78.01 Secondary malignant neoplasm of right lung; C34.2 Malignant neoplasm of middle lobe, bronchus or lung; R90.82 White matter disease, unspecified; Z92.3 Personal history of irradiation
CPT/HCPCS: 70553; A9585

== ENCOUNTER → 2024-11-16 | Outpatient (CLI) | payer MEDICARE ==
[2024-11-16 11:10] LABS: African American GFR (CKD) >90 (>60 ml/min/1.73 sqM); Blood Urea Nitrogen 11 mg/dL (7-17)
[2024-11-16 11:11] LABS: Non-African American GFR(CKD) 79 (>60 ml/min/1.73 sqM)
--- NOTE | 2024-11-16 13:46 | CT ---
EXAMINATION TYPE: CT ChestAbdPelvis w con DATE OF EXAM: 11/16/2024 11:47 AM COMPARISON: 09/08/2024. CLINICAL INDICATION: Female, 59 years old with history of C34.2 MALIGNANT NEOPLASM OF MIDDLE LOBE, BR ONCHUS; PHH, terminal lung ca. prior on pacs. iv contrast only Technique: CT ChestAbdPelvis w con; Multiple axial images were obtained. Two-dimensional coronal and sagittal reconstructions were obtained. Contrast used:100ml mL of Isovue 300 with IV Contrast, (None if empty) Oral contrast used: without Oral Contrast CT DLP: 563.50 mGycm, Automated exposure control for dose reduction was used. Findings: CHEST: LUNGS/ PLEURA: Stable right upper lobe peripheral groundglass nodule measuring 7 mm series 4 image 14. Right perihil ar consolidation compatible with history of malignancy. No new or enlarging pulmonary nodules are dec reasing size of lymph nodes to suggest active malignancy CT imaging. Nodular density in the right low er lung along the periphery. Significantly changed. There are some postsurgical change/scarring in th is region Right perihilar consolidation changes which were not FDG avid on prior PET/CT on 06/04/2024. Consolida tion changes in the right lung base at that time have improved with decrease in size of nodular densi ties. Small nodular densities remain enlarged measuring up to 6 mm series 9 image 21. No focal consol idation, pneumothorax or pleural effusion. AIRWAY: Patent and unremarkable. HEART: Size within normal limits. MEDIASTINUM: No gross evidence of adenopathy. VASCULATURE: No aortic aneurysm. Chest wall [id number]-q-Luvr with tip terminating in the superior vena cava. MUSCULOSKELETAL: No acute osseous abnormalities. SOFT TISSUES/LYMPH NODES: Right breast implant has ruptured. Left implant appears intact. Findings si milar to prior. LOWER NECK: No significant findings. ABDOMEN: ABDOMEN LIVER: Caudate lobe simple appearing cyst. GALLBLADDER AND BILE DUCTS: Unremarkable. PANCREAS: Unremarkable. SPLEEN: Unremarkable. ADRENAL GLANDS: Unremarkable. KIDNEYS AND URETERS: No evidence of hydronephrosis or renal calculus. The ureters are unremarkable. PELVIS BLADDER: Unremarkable REPRODUCTIVE: Unremarkable. ABDOMEN & PELVIS STOMACH AND BOWEL: Large amount stool throughout the colon. Scattered No evidence of bowel obstructio n. PERITONEUM/RETROPERITONEUM: No evidence of pneumoperitoneum or free fluid. VASCULATURE: No evidence of aortic aneurysm. MUSCULOSKELETAL: Bilateral hip arthroplasties appear intact. Streak artifact limits evaluation the pe lvis. Moderate amount stool in the colon LYMPH NODES: No gross evidence for lymphadenopathy. SOFT TISSUE/ABDOMINAL WALL: Unremarkable IMPRESSION: 1. Stable exam no evidence for new or enlarging mass or lymphadenopathy. 2. Similar Right breast implant has ruptured. Left implant appears intact. [facility], , 11/16/2024 1:44 PM
== END | disposition home or self-care (01) ==
LOC: RADCTMAIN 10:16
PROVIDERS: ATTEND Internal Medicine Hematology & Oncology
DX: C34.2 Malignant neoplasm of middle lobe, bronchus or lung (principal); T85.49XA Other mechanical complication of breast prosthesis and implant, initial encounter
CPT/HCPCS: 82565; 84520; 71260; 74177; 36415; Q9967

== ENCOUNTER → 2025-01-08 | Outpatient (CLI) | payer MEDICARE, OTHER ==
--- NOTE | 2025-01-08 10:26 | MR ---
EXAMINATION TYPE: MR brain wo/w con DATE OF EXAM: 01/08/2025 10:03 AM COMPARISON: 09/25/2024 CLINICAL INDICATION: Female, 59 years old with history of C79.31, C78.01, C34.2, Brain cancer, f/u po st radiation IV Contrast: 6.5 cc Gadobutrol (None if empty) TECHNIQUE: Multiplanar, multisequence images of the brain and brainstem were acquired before and aft er administration of 6.5 mL IV Gadobutrol. Diffusion weighted imaging is performed. FINDINGS: No evidence for acute infarction, hemorrhage, mass, mass effect, midline shift, herniation, effacemen t of basal cisterns, or extra-axial fluid collection. The ventricles and sulci are age-appropriate. Major intracranial flow voids are intact. Persistent origin right [employer]. T2/FLAIR weighted sequences again show moderate scattered bright signal foci throughout both cerebral hemispheres predominantly in the subcortical and deep white matter regions, most likely relating to chronic small vessel ischemic disease change. Midline structures demonstrate normal morphology. The craniocervical junction is normal. Stable 2 mm focus of cortical enhancement within the right precentral gyrus. The previous thin enhanc ement in the medial left cerebellum is no longer seen. No new enhancement is seen. Dural venous sinuses are patent. There is rightward nasal septal deviation. Scattered mild mucosal thickening ethmoid air cells. Small mucosal retention cysts right maxillary sinus measuring up to 7 mm. Globes are intact. IMPRESSION: 1. Stable 2 mm enhancing lesion right precentral gyrus. The previous residual lesion at medial left c erebellum is no longer seen. No new or enlarging lesions are identified. 2. Stable scattered moderate burden of chronic small vessel ischemic disease. No acute intracranial a bnormality seen. 3. Mild chronic ethmoid and right maxillary sinus disease. [facility], , 01/08/2025 10:24 AM
== END | disposition home or self-care (01) ==
LOC: RADMRIMAIN 09:01
PROVIDERS: ATTEND Radiology Radiation Oncology
DX: C79.31 Secondary malignant neoplasm of brain (principal); C78.01 Secondary malignant neoplasm of right lung; C34.2 Malignant neoplasm of middle lobe, bronchus or lung; I67.82 Cerebral ischemia; J32.0 Chronic maxillary sinusitis
CPT/HCPCS: 70553; A9585

== ENCOUNTER → 2025-03-09 | Outpatient (CLI) | payer MEDICARE ==
[2025-03-09 10:59] LABS: African American GFR (CKD) 82 (>60 ml/min/1.73 sqM); Blood Urea Nitrogen 13 mg/dL (7-17); Non-African American GFR(CKD) 71 (>60 ml/min/1.73 sqM)
--- NOTE | 2025-03-09 20:49 | CT ---
EXAMINATION TYPE: CT ChestAbdPelvis w con DATE OF EXAM: 03/09/2025 12:14 PM COMPARISON: 11/16/2024 and 06/04/2024 CLINICAL INDICATION: Female, 60 years old with history of C34.2 LUNG CANCER, TECHNIQUE: CT imaging performed with sagittal coronal reformats. CT scan of the chest, abdomen and pe lvis is performed with Oral Contrast and with IV Contrast, patient injected with 100ml mL of Isovue [address] DLP: 1468 mGycm, Automated exposure control for dose reduction was used. FINDINGS: CT Chest: LUNGS: Right hilar soft tissue persists and unchanged from prior study measuring approximately 4.7 x 4.4 cm. There is narrowing of the right upper lobe bronchus and irregularity of the left lower lobe b ronchus noted. Right perihilar consolidation changes which were not FDG avid on prior PET/CT on 2023. Stable peripheral groundglass nodule right upper lobe at its periphery image 14 measuring 7 mm versus 7 mm. Stable 2 cm consolidative process right lower lobe image 40 MEDIASTINUM: Thoracic aorta is of normal caliber. The heart is not enlarged. No evidence for media stinal mass or adenopathy. HEART: Size within normal limits. No significant coronary artery calcifications. HILAR STRUCTURES: No evidence for mass. No hilar adenopathy is appreciated. OTHER: Ruptured right breast implant. CONTRAST CT ABDOMEN AND PELVIS FINDINGS: LIVER/GB: No calcified gallstones. No space occupying hepatic lesion. Biliary tree is of normal ca liber. PANCREAS: No inflammation. No distinct mass. SPLEEN: No splenic enlargement. No lesion seen. ADRENALS: No nodule. No thickening. KIDNEYS/BLADDER: No hydronephrosis. No nephrolithiasis. No disctinct renal mass. BOWEL: Normal appendix. Normal bowel caliber. No inflammation. GENITAL ORGANS: No gross abnormality. LYMPH NODES: No greater than 1cm abdominal or pelvic lymph nodes are appreciated. AORTA: No significant abnormality. OSSEOUS STRUCTURES: Bilateral hip prostheses are intact. This does limit evaluation of the pelvic str uctures demonstrate artifact. OTHER: No significant additional abnormality is seen. IMPRESSION: 1. Stable exam no evidence for new or enlarging mass or lymphadenopathy. [facility], , 03/09/2025 8:46 PM
== END | disposition home or self-care (01) ==
LOC: RADCTMAIN 10:05
PROVIDERS: ATTEND Internal Medicine Hematology & Oncology
DX: C34.2 Malignant neoplasm of middle lobe, bronchus or lung (principal)
CPT/HCPCS: 82565; 84520; 71260; 74177; 36415; Q9967